=== PATIENT | male | born 1940 | race Caucasian/White ===

== ENCOUNTER 2017-11-03 21:02 | Inpatient (IN) | payer MEDICARE, MEDICAID ==
[2017-11-03] MEDS ORDERED: Sodium Chloride 0.9% 10 ML Syringe FLUSH PRN (21:25)
[2017-11-03] MEDS ORDERED: cefTRIAXone 2 GM in Sodium Chloride 0.9% 100 ML IV ONE (21:27)
[2017-11-03] MEDS ORDERED: Albuterol/Ipratropium 3.0-0.5 MG/3 ML Neb Soln NEB ONE (21:27)
--- NOTE | 2017-11-03 21:28 | EDM.PDOC ---
ED HPI GENERAL MEDICAL PROBLEM - General Chief Complaint: Respiratory Problem Stated Complaint: FEVER/CONGESTION Time Seen by Provider: 11/03/17 21:21 Source of Information: Reports: Patient, Family, Assisted Records History Limitations: Reports: No Limitations - History of Present Illness INITIAL COMMENTS - FREE TEXT/NARRATIVE: The patient presents from [facility] in [place] for fever, cough and shortness of breath. This all started a few days ago and it got worse. He had a temp of 102 at the custodial and he was given tylenol before he left to come to the ER. His temp was down to normal. His oxygen saturations were in the 80s at the custodial so they gave him oxygen to come with. He has no history of COPD or asthma but he says he did smoke for many years. He quit about 7 years ago when he went to the custodial after a stroke. He has no chest pain, abdominal pain, nausea or vomiting. Onset: Gradual Duration: Day(s): (2) Severity: Moderate Improves with: Reports: None Worsens with: Reports: None Associated Symptoms: Reports: Cough, Fever/Chills, Shortness of Breath. 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 - Related Data Allergies Allergy/AdvReac Type Severity Reaction Status Date / Time penicillin G Allergy Cannot Verified 11/03/17 21:16 Remember Home Meds: Home Meds Acetaminophen [Tylenol] 325 mg PO Q6HR PRN 11/03/17 [History] Acetaminophen/HYDROcodone [[place] 325-5 MG] 1 tab PO Q6HR PRN 11/03/17 [History] Clopidogrel [Plavix] 75 mg PO DAILY 11/03/17 [History] Dutasteride [Avodart] 0.5 mg PO DAILY 11/03/17 [History] Hydrochlorothiazide 12.5 mg PO DAILY 11/03/17 [History] LORazepam [Ativan] 0.5 mg PO BEDTIME 11/03/17 [History] LORazepam [Ativan] 0.5 mg PO Q8HR PRN 11/03/17 [History] Losartan [Cozaar] 50 mg PO DAILY 11/03/17 [History] Metoprolol Tartrate [Lopressor] 25 mg PO Q12HR 11/03/17 [History] Multivitamin [Multivitamins] 1 each PO DAILY 11/03/17 [History] Nystatin [Nystatin Oint] 1 appful TRDERM BID 11/03/17 [History] Sertraline [Zoloft] 150 mg PO DAILY 11/03/17 [History] Tamsulosin [Tamsulosin 24 Hr] 0.8 mg PO DAILY 11/03/17 [History] atorvaSTATin [Lipitor] 20 mg PO BEDTIME 11/03/17 [History] ED ROS GENERAL - Review of Systems Review Of Systems: See Below Constitutional: Reports: Fever, Chills HEENT: Reports: No Symptoms Respiratory: Reports: Shortness of Breath, Cough Cardiovascular: Reports: No Symptoms Endocrine: Reports: No Symptoms GI/Abdominal: Reports: No Symptoms : Reports: No Symptoms Musculoskeletal: Reports: No Symptoms ED EXAM, GENERAL - Physical Exam Exam: See Below Exam Limited By: No Limitations General Appearance: Alert, No Apparent Distress Ears: Normal External Exam Nose: Normal Inspection Head: Atraumatic, Normocephalic Neck: Normal Inspection Respiratory/Chest: No Respiratory Distress, Rhonchi, Wheezing Cardiovascular: Regular Rate, Rhythm, No Edema, No Murmur GI/Abdominal: Soft, Non-Tender, No Organomegaly, No Mass Back Exam: Normal Inspection Extremities: Normal Inspection Course - Vital Signs Last Recorded V/S: Last Vital Signs Temp 97.4 F 11/03/17 21:13 Pulse 81 11/03/17 21:13 Resp 20 11/03/17 21:13 BP 132/58 L 11/03/17 21:13 Pulse Ox 94 L 11/03/17 21:33 - Orders/Labs/Meds Orders: Active Orders 24 hr Category Date Time Status Cardiac Monitoring [RC] . DIRECTED Care 11/03/17 21:25 Active Oxygen Therapy [RC] PRN Care 11/03/17 21:25 Active Peripheral IV Care [RC] . DIRECTED Care 11/03/17 21:25 Active RT Aerosol Therapy [RC] ASDIRECTED Care 11/03/17 21:27 Active Chest 1V Frontal [CR] Stat Exams 11/03/17 21:25 Taken CULTURE BLOOD [BC] Stat Lab 11/03/17 21:45 Received CULTURE BLOOD [BC] Stat Lab 11/03/17 21:52 Received Sodium Chloride 0.9% [Normal Saline] 1,000 ml Med 11/03/17 21:30 Active IV ASDIRECTED Sodium Chloride 0.9% [Saline Flush] Med 11/03/17 21:25 Active 10 ml FLUSH ASDIRECTED PRN Blood Culture x2 Reflex Set [OM.PC] Stat Oth 11/03/17 21:26 Ordered Peripheral IV Insertion Adult [OM.PC] Stat Oth 11/03/17 21:25 Ordered Medication Orders Sodium Chloride (Normal Saline) 1,000 mls @ 125 mls/hr IV ASDIRECTED TARIQ Last Admin: 11/03/17 21:45 Dose: 125 mls/hr Sodium Chloride (Saline Flush) 10 ml FLUSH ASDIRECTED PRN PRN Reason: Keep Vein Open Last Admin: 11/03/17 21:45 Dose: 10 ml Labs: Laboratory Tests 11/03/17 11/03/17 11/03/17 Range/Units 21:45 21:45 21:45 WBC 15.71 H (4.23-9.07) K/mm3 RBC 5.02 (4.63-6.08) M/mm3 Hgb 15.4 (13.7-17.5) gm/L Hct 46.4 (40.1-51.0) % MCV 92.4 H (79.0-92.2) fl MCH 30.7 (25.7-32.2) pg MCHC 33.2 (32.2-35.5) g/dl RDW Std Deviation 43.9 (35.1-43.9) fL Plt Count 213 (163-337) K/mm3 MPV 9.8 (9.4-12.3) fl Neut % (Auto) 82.7 H (34.0-67.9) % Lymph % (Auto) 7.4 L (21.8-53.1) % [place] % (Auto) 9.1 (5.3-12.2) % Eos % (Auto) 0.4 L (0.8-7.0) Baso % (Auto) 0.2 (0.1-1.2) % Neut # (Auto) 12.99 H (1.78-5.38) K/mm3 Lymph # (Auto) 1.17 L (1.32-3.57) K/mm3 [place] # (Auto) 1.43 H (0.30-0.82) K/mm3 Eos # (Auto) 0.06 (0.04-0.54) K/mm3 Baso # (Auto) 0.03 (0.01-0.08) K/mm3 Manual Slide Review Normal smear Sodium 137 (136-145) mEq/L Potassium 3.8 (3.5-5.1) mEq/L Chloride 101 (98-107) mEq/L Carbon Dioxide 25 (21-32) mEq/L Anion Gap 14.8 (5-15) BUN 21 H (7-18) mg/dL Creatinine 1.1 (0.7-1.3) mg/dL Est Cr Clr Drug Dosing 54.25 mL/min Estimated GFR (MDRD) > 60 (>60) mL/min BUN/Creatinine Ratio 19.1 H (14-18) Glucose 135 H (83-115) mg/dL Lactic Acid 0.9 (0.4-2.0) mmol/L Calcium 9.0 (8.5-10.1) mg/dL Total Bilirubin 0.8 (0.2-1.0) mg/dL AST 20 (15-37) U/L ALT 28 (16-63) U/L Alkaline Phosphatase 73 (46-116) U/L Total Protein 7.4 (6.4-8.2) g/dl Albumin 3.5 (3.4-5.0) g/dl Globulin 3.9 gm/dL Albumin/Globulin Ratio 0.9 L (1-2) Meds: Medications Generic Name Dose Route Start Last Admin Trade Name Freq PRN Reason Stop Dose Admin Sodium Chloride 1,000 mls @ 125 mls/hr 11/03/17 21:30 11/03/17 21:45 Normal Saline IV 125 mls/hr ASDIRECTED TARIQ Administration Sodium Chloride 10 ml 11/03/17 21:25 11/03/17 21:45 Saline Flush FLUSH 10 ml ASDIRECTED PRN Administration Keep Vein Open Discontinued Medications Generic Name Dose Route Start Last Admin Trade Name Freq PRN Reason Stop Dose Admin Albuterol/Ipratropium 3 ml 11/03/17 21:27 11/03/17 21:38 Duoneb 3.0-0.5 Mg/3 Ml NEB 11/03/17 21:28 3 ml ONETIME ONE Administration Ceftriaxone Sodium 2 gm/ 100 mls @ 100 mls/hr 11/03/17 21:27 11/03/17 21:50 Sodium Chloride IV 11/03/17 22:26 100 mls/hr ONETIME ONE Administration - Re-Assessments/Exams Free Text/Narrative Re-Assessment/Exam: 11/03/17 23:01 I ordered oxygen, IV NS at 125mL/hr, CXR, labs, blood cultures, rocephin 2 grams IV and a duoneb. His CXR shows a left sided perihilar infiltrate. 11/03/17 23:02 His WBC was elevated at 15.71. His glucose was slightly elevated at 135. His creatinine was normal. His lactic acid was normal. His influenza was negative. He needs to be admitted. I called Dr Fernandez and she agreed to the admission. Departure - Departure Time of Disposition: 23:05 Disposition: Admitted As Inpatient 68 Condition: Fair Clinical Impression: Hypoxia Pneumonia Qualifiers: Pneumonia type: due to unspecified organism Laterality: left Lung location: lower lobe of lung Qualified Code(s): J18.1 - Lobar pneumonia, unspecified organism - Discharge Information Referrals: Nate Alan MD [Primary Care Provider] - Forms: ED Department Discharge - My Orders Last 24 Hours: My Active Orders 11/03/17 21:25 Cardiac Monitoring [RC] . DIRECTED Oxygen Therapy [RC] PRN Peripheral IV Care [RC] . DIRECTED Chest 1V Frontal [CR] Stat Sodium Chloride 0.9% [Saline Flush] 10 ml FLUSH ASDIRECTED PRN Peripheral IV Insertion Adult [OM.PC] Stat 11/03/17 21:26 Blood Culture x2 Reflex Set [OM.PC] Stat 11/03/17 21:27 RT Aerosol Therapy [RC] ASDIRECTED 11/03/17 21:30 Sodium Chloride 0.9% [Normal Saline] 1,000 ml IV ASDIRECTED 11/03/17 21:45 CULTURE BLOOD [BC] Stat 11/03/17 21:52 CULTURE BLOOD [BC] Stat - Assessment/Plan Last 24 Hours: My Active Orders 11/03/17 21:25 Cardiac Monitoring [RC] . DIRECTED Oxygen Therapy [RC] PRN Peripheral IV Care [RC] . DIRECTED Chest 1V Frontal [CR] Stat Sodium Chloride 0.9% [Saline Flush] 10 ml FLUSH ASDIRECTED PRN Peripheral IV Insertion Adult [OM.PC] Stat 11/03/17 21:26 Blood Culture x2 Reflex Set [OM.PC] Stat 11/03/17 21:27 RT Aerosol Therapy [RC] ASDIRECTED 11/03/17 21:30 Sodium Chloride 0.9% [Normal Saline] 1,000 ml IV ASDIRECTED 11/03/17 21:45 CULTURE BLOOD [BC] Stat 11/03/17 21:52 CULTURE BLOOD [BC] Stat
[2017-11-03] MEDS ORDERED: Sodium Chloride 0.9% 1,000 ML IV SCH (21:30)
[2017-11-03] MEDS ORDERED: Sodium Chloride 0.9% 500 ML IV ONE (23:20)
[2017-11-04] MEDS ORDERED: Albuterol/Ipratropium 3.0-0.5 MG/3 ML Neb Soln NEB ONE (00:09)
[2017-11-04] MEDS ORDERED: Acetaminophen Soln 650 MG/20.3 ML UD Cup PO PRN (01:21)
[2017-11-04] MEDS ORDERED: Enoxaparin 30 MG/0.3 ML Syringe SUBCUT ONE (01:30)
[2017-11-04] MEDS: Levofloxacin/Dextrose 5%-Water 750 MG in Premix Bag 1 BAG IV SCH (02:05)
[2017-11-04] MEDS: Sodium Chloride 0.9% 1,000 ML IV SCH ×3 (03:47→22:23)
--- NOTE | 2017-11-04 06:51 | CR ---
Chest: Portable view of the chest was obtained. Comparison: Previous chest x-ray of 01/30/[address] of 05/28/15. Deformity of the left chest due to old left-sided rib fractures is noted. Old healed left clavicle fracture is noted. Heart size is normal. Tortuous thoracic aorta is seen. Lungs show no acute parenchymal change. Deformity partially visualized within the proximal right humerus presumably due to old fracture. Impression: 1. Old bony trauma. Nothing acute is seen on portable chest x-ray. Diagnostic code #2
[2017-11-04] MEDS ORDERED: Acetaminophen 325 MG Tab PO PRN (08:13)
[2017-11-04] MEDS ORDERED: Magnesium Hydroxide 400 MG/5 ML Susp 30 ML Cup PO PRN (08:13)
[2017-11-04] MEDS ORDERED: Bisacodyl 5 MG Tab PO PRN (08:13)
[2017-11-04] MEDS ORDERED: Albuterol 0.083% 2.5 MG/3 ML Neb Soln NEB PRN (08:13)
[2017-11-04] MEDS ORDERED: Ondansetron 4 MG Tab.DIS PO PRN (08:13)
[2017-11-04] MEDS ORDERED: LORazepam 0.5 MG Tab PO PRN (08:22)
--- NOTE | 2017-11-04 08:30 | PCM.HP ---
H&P History of Present Illness - General Date of Service: 11/04/17 Admit Problem/Dx: Admission Diagnosis/Problem Admission Diagnosis/Problem Pneumonia Source of Information: Patient, Other (ED notes) History Limitations: Reports: No Limitations - History of Present Illness Initial Comments - Free Text/Narative: Crys is a 77yo male admitted through the ED last night for LLL PNA with hypoxia. He arrived via ambulance from [facility] in [place] where he resides for the past 7 years s/p CVA. He had been feeling weak with worsening cough and SOB x 2 days [facility]. He had a temp of 102 at [facility] earlier the day of admission. He has had low grade temp overnight of 99. He is on 3L supplemental oxygen this morning with saturations in the low 90's. Did not sleep the best, is coughing with minimal production this morning. No c/o CP, dizziness, abd or back pain this morning. PMH significant for CVA in 2000, COPD, pulmonary nodule, HTN, HLD, BPH, depression and anxiety, contracture of the left hand and chronic pain syndrome, hx of tobacco use quit 7 years ago after CVA. Patient is DNR code status. PCP is Dr. Alan. Duration of Symptoms: Reports: Day(s): (2) Location: Reports: Chest Quality: Reports: Other (cough and worsening SOB) Associated Symptoms: Reports: Fever/Chills, Loss of Appetite, Malaise, Shortness of Breath, Weakness. Denies: Chest Pain, Nausea/Vomiting, Syncope - Related Data Allergies/Adverse Reactions: Allergies Allergy/AdvReac Type Severity Reaction Status Date / Time penicillin G Allergy Cannot Verified 11/04/17 04:19 Remember Home Medications: Home Meds Acetaminophen [Tylenol] 325 mg PO Q6HR PRN 11/03/17 [History] Acetaminophen/HYDROcodone [[place] 325-5 MG] 1 tab PO Q6HR PRN 11/03/17 [History] Clopidogrel [Plavix] 75 mg PO DAILY 11/03/17 [History] Dutasteride [Avodart] 0.5 mg PO DAILY 11/03/17 [History] Hydrochlorothiazide 12.5 mg PO DAILY 11/03/17 [History] LORazepam [Ativan] 0.5 mg PO BEDTIME 11/03/17 [History] LORazepam [Ativan] 0.5 mg PO Q8HR PRN 11/03/17 [History] Losartan [Cozaar] 50 mg PO DAILY 11/03/17 [History] Metoprolol Tartrate [Lopressor] 25 mg PO Q12HR 11/03/17 [History] Multivitamin [Multivitamins] 1 each PO DAILY 11/03/17 [History] Sertraline [Zoloft] 150 mg PO DAILY 11/03/17 [History] Tamsulosin [Tamsulosin 24 Hr] 0.8 mg PO DAILY 11/03/17 [History] atorvaSTATin [Lipitor] 20 mg PO BEDTIME 11/03/17 [History] Docosanol [Abreva 10%] 1 applic TOP DAILY PRN 11/04/17 [History] Past Medical History HEENT History: Reports: Hard of Hearing Cardiovascular History: Reports: Hypertension Respiratory History: Reports: COPD, Other (See Below) Other Respiratory History: pulmonary nodule Musculoskeletal History: Reports: Other (See Below) Other Musculoskeletal History: contracture of left hand, chronic pain syndrome Neurological History: Reports: TIA, Other (See Below) Other Neuro History: cerebral infarction Psychiatric History: Reports: Anxiety, Depression Dermatologic History: Reports: Seborrheic Dermatitis - Past Surgical History Cardiovascular Surgical History: Reports: None Respiratory Surgical History: Reports: None Social & Family History - Family History Family Medical History: Noncontributory - Tobacco Use Smoking Status *Q: Former Smoker Used Tobacco, but Quit: Yes Month Tobacco Last Used: unknown Second Hand Smoke Exposure: No - Caffeine Use Caffeine Use: Reports: None - Recreational Drug Use Recreational Drug Use: No H&P Review of Systems - Review of Systems: Review Of Systems: See Below General: Reports: Fever (low grade/minimal since admit), Malaise, Weakness, Fatigue, Decreased Appetite HEENT: Reports: No Symptoms Pulmonary: Reports: Shortness of Breath, Cough Cardiovascular: Reports: Dyspnea on Exertion. Denies: Chest Pain, Palpitations Gastrointestinal: Reports: No Symptoms. Denies: Abdominal Pain, Nausea, Vomiting Genitourinary: Reports: No Symptoms Musculoskeletal: Reports: No Symptoms, Other (contracture of lt hand by hx- s/p CVA) Psychiatric: Reports: Depression (by hx), Anxiety (by hx) Neurological: Reports: Weakness Exam - Exam Exam: See Below - Vital Signs Vital Signs: Last Vital Signs Temp 99.1 F 11/04/17 03:51 Pulse 74 11/04/17 03:51 Resp 40 H 11/04/17 03:51 BP 109/57 L 11/04/17 03:51 Pulse Ox 90 L 11/04/17 03:51 Weight: 199 lb 14.4 oz - Exam Quality Assessment: Supplemental Oxygen, DVT Prophylaxis General: Alert, Cooperative HEENT: Conjunctiva Clear, EOMI, Hearing Intact ([place]), Pupils Equal, Pupils Reactive, PERRLA Neck: Supple Lungs: Normal Respiratory Effort, Decreased Breath Sounds, Rhonchi, Wheezing Cardiovascular: Regular Rate, Regular Rhythm GI/Abdominal Exam: Normal Bowel Sounds, Soft, Non-Tender (Male) Exam: Deferred Rectal (Males) Exam: Deferred Back Exam: Normal Inspection Extremities: No Pedal Edema, Normal Capillary Refill, Other (contracture of lt hand) Peripheral Pulses: 1+: Dorsalis Pedis (L), Dorsalis Pedis (R) Neuro Extensive - Mental Status: Alert, Oriented x3, Normal Mood/Affect, Normal Cognition, Memory Intact Psychiatric: Alert - Patient Data Lab Results Last 24 hrs: Laboratory Results - last 24 hr 11/04/17 11/04/17 11/04/17 Range/Units 00:20 06:32 06:32 WBC 12.03 H (4.23-9.07) K/mm3 RBC 4.67 (4.63-6.08) M/mm3 Hgb 14.2 (13.7-17.5) gm/L Hct 44.0 (40.1-51.0) % MCV 94.2 H (79.0-92.2) fl MCH 30.4 (25.7-32.2) pg MCHC 32.3 (32.2-35.5) g/dl RDW Std Deviation 44.2 H (35.1-43.9) fL Plt Count 209 (163-337) K/mm3 MPV 9.9 (9.4-12.3) fl Neut % (Auto) 68.1 H (34.0-67.9) % Lymph % (Auto) 15.4 L (21.8-53.1) % [place] % (Auto) 13.5 H (5.3-12.2) % Eos % (Auto) 2.4 (0.8-7.0) Baso % (Auto) 0.4 (0.1-1.2) % Neut # (Auto) 8.19 H (1.78-5.38) K/mm3 Lymph # (Auto) 1.85 (1.32-3.57) K/mm3 [place] # (Auto) 1.62 H (0.30-0.82) K/mm3 Eos # (Auto) 0.29 (0.04-0.54) K/mm3 Baso # (Auto) 0.05 (0.01-0.08) K/mm3 Manual Slide Review Normal smear Sodium 139 (136-145) mEq/L Potassium 3.9 (3.5-5.1) mEq/L Chloride 104 (98-107) mEq/L Carbon Dioxide 27 (21-32) mEq/L Anion Gap 11.9 (5-15) BUN 19 H (7-18) mg/dL Creatinine 1.0 (0.7-1.3) mg/dL Est Cr Clr Drug Dosing 59.67 mL/min Estimated GFR (MDRD) > 60 (>60) mL/min BUN/Creatinine Ratio 19.0 H (14-18) Glucose 100 (83-115) mg/dL Lactic Acid (0.4-2.0) mmol/L Calcium 8.1 L (8.5-10.1) mg/dL Magnesium 1.9 (1.8-2.4) mg/dl C-Reactive Protein 6.4 H* (<1.0) mg/dL MRSA (PCR) Negative 11/04/17 Range/Units 06:32 WBC (4.23-9.07) K/mm3 RBC (4.63-6.08) M/mm3 Hgb (13.7-17.5) gm/L Hct (40.1-51.0) % MCV (79.0-92.2) fl MCH (25.7-32.2) pg MCHC (32.2-35.5) g/dl RDW Std Deviation (35.1-43.9) fL Plt Count (163-337) K/mm3 MPV (9.4-12.3) fl Neut % (Auto) (34.0-67.9) % Lymph % (Auto) (21.8-53.1) % [place] % (Auto) (5.3-12.2) % Eos % (Auto) (0.8-7.0) Baso % (Auto) (0.1-1.2) % Neut # (Auto) (1.78-5.38) K/mm3 Lymph # (Auto) (1.32-3.57) K/mm3 [place] # (Auto) (0.30-0.82) K/mm3 Eos # (Auto) (0.04-0.54) K/mm3 Baso # (Auto) (0.01-0.08) K/mm3 Manual Slide Review Sodium (136-145) mEq/L Potassium (3.5-5.1) mEq/L Chloride (98-107) mEq/L Carbon Dioxide (21-32) mEq/L Anion Gap (5-15) BUN (7-18) mg/dL Creatinine (0.7-1.3) mg/dL Est Cr Clr Drug Dosing mL/min Estimated GFR (MDRD) (>60) mL/min BUN/Creatinine Ratio (14-18) Glucose (83-115) mg/dL Lactic Acid 0.7 (0.4-2.0) mmol/L Calcium (8.5-10.1) mg/dL Magnesium (1.8-2.4) mg/dl C-Reactive Protein (<1.0) mg/dL MRSA (PCR) Result Diagrams: 11/04/17 06:32 11/04/17 06:32 Rafal Results Last 24 hrs: Microbiology 11/04/17 02:15 Influenza Type A Antigen Screen - Final Nasal, Unspecified NEGATIVE INFLUENZA A VIRUS AG Influenza Type B Antigen Screen - Final NEGATIVE INFLUENZA B VIRUS AG *Q Meaningful Use (ADM) - VTE *Q VTE Criteria *Q: - Stroke *Q Stroke Criteria *Q: - AMI *Q AMI Criteria *Q: - Problem List (1) Pneumonia SNOMED Code(s): 968022268 ICD Code: J18.9 - PNEUMONIA, UNSPECIFIED ORGANISM Status: Acute Priority : High Current Visit: Yes Qualifiers: Pneumonia type: due to unspecified organism Laterality: left Lung location: lower lobe of lung Qualified Code(s): J18.1 - Lobar pneumonia, unspecified organism (2) Hypoxia SNOMED Code(s): 429118819 ICD Code: R09.02 - HYPOXEMIA Status: Acute Priority: High Current Visit : Yes (3) COPD (chronic obstructive pulmonary disease) SNOMED Code(s): 91627692 ICD Code: J44.9 - CHRONIC OBSTRUCTIVE PULMONARY DISEASE, UNSPECIFIED Status : Chronic Priority: High Current Visit: Yes Qualifiers: COPD type: COPD with acute exacerbation Qualified Code(s): J44.1 - Chronic obstructive pulmonary disease with (acute) exacerbation (4) History of CVA (cerebrovascular accident) SNOMED Code(s): 596591978 ICD Code: Z86.73 - PRSNL HX OF TIA (TIA), AND CEREB INFRC W/O RESID DEFICITS Status: Chronic Priority: Medium Current Visit: No Problem List Initiated/Reviewed/Updated: Yes Orders Last 24hrs: Active Orders 24 hr Category Date Time Status Patient Status [ADT] Routine ADT 11/04/17 01:15 Active Ambulate [RC] QSHIFT Care 11/04/17 08:13 Ordered Height and Weight [RC] DAILY Care 11/04/17 08:13 Ordered IS (RT) [RT Incentive Spirometry] [RC] Q2HWA Care 11/04/17 08:21 Ordered Intake and Output [RC] QSHIFT Care 11/04/17 08:14 Ordered Oxygen Therapy [RC] PRN Care 11/04/17 08:13 Ordered RT Aerosol Therapy [RC] ASDIRECTED Care 11/04/17 08:15 Ordered Up With Assistance [RC] ASDIRECTED Care 11/04/17 08:13 Ordered VTE/DVT Education [RC] PER UNIT ROUTINE Care 11/04/17 08:13 Ordered Vital Signs [RC] Q4H Care 11/04/17 08:13 Ordered OT Evaluation and Treatment [CONS] Routine Cons 11/04/17 08:13 Ordered PT Evaluation and Treatment [CONS] Routine Cons 11/04/17 08:13 Ordered 2 Gram Sodium Diet [DIET] Diet 11/04/17 Breakfast Ordered Chest 2V [CR] AM Exams 11/05/17 05:11 Ordered BASIC METABOLIC PANEL,BMP [CHEM] AM Lab 11/05/17 05:11 Ordered BASIC METABOLIC PANEL,BMP [CHEM] AM Lab 11/06/17 05:11 Ordered BASIC METABOLIC PANEL,BMP [CHEM] AM Lab 11/07/17 05:11 Ordered BASIC METABOLIC PANEL,BMP [CHEM] AM Lab 11/08/17 05:11 Ordered BASIC METABOLIC PANEL,BMP [CHEM] Routine Lab 11/04/17 06:32 Results C-REACTIVE PROTEIN [CHEM] AM Lab 11/05/17 05:11 Ordered C-REACTIVE PROTEIN [CHEM] AM Lab 11/06/17 05:11 Ordered C-REACTIVE PROTEIN [CHEM] AM Lab 11/07/17 05:11 Ordered C-REACTIVE PROTEIN [CHEM] AM Lab 11/08/17 05:11 Ordered CBC WITH AUTO DIFF [HEME] AM Lab 11/05/17 05:11 Ordered CBC WITH AUTO DIFF [HEME] AM Lab 11/06/17 05:11 Ordered CBC WITH AUTO DIFF [HEME] AM Lab 11/07/17 05:11 Ordered CBC WITH AUTO DIFF [HEME] AM Lab 11/08/17 05:11 Ordered CRP [C-REACTIVE PROTEIN] [CHEM] Routine Lab 11/04/17 06:32 Results MAGNESIUM [CHEM] AM Lab 11/05/17 05:11 Ordered MAGNESIUM [CHEM] AM Lab 11/06/17 05:11 Ordered MAGNESIUM [CHEM] AM Lab 11/07/17 05:11 Ordered MAGNESIUM [CHEM] AM Lab 11/08/17 05:11 Ordered MAGNESIUM [CHEM] Routine Lab 11/04/17 06:32 Results MYCOPLASMA PNEUMONIAE IGM AB [CHEM] Routine Lab 11/04/17 06:32 Results STREP PNEUMONIAE ANTIGEN [MREF] Routine Lab 11/04/17 03:30 Received UA W/MICROSCOPIC [URIN] Routine Lab 11/04/17 08:13 Ordered Acetaminophen [Tylenol] Med 11/04/17 01:21 Active 650 mg PO Q4H PRN Acetaminophen [Tylenol] Med 11/04/17 08:13 Ordered 650 mg PO Q4H PRN Albuterol [Proventil Neb Soln] Med 11/04/17 08:13 Ordered 2.5 mg NEB Q2H PRN Albuterol/Ipratropium [DuoNeb 3.0-0.5 MG/3 ML] Med 11/04/17 09:00 Ordered 3 ml NEB Q6HRRT Bisacodyl [Dulcolax] Med 11/04/17 08:13 Ordered 5 mg PO DAILY PRN Clopidogrel [Plavix] Med 11/04/17 09:00 Ordered 75 mg PO DAILY Dutasteride Med 11/04/17 09:00 Ordered 0.5 mg PO DAILY Enoxaparin [Lovenox] Med 11/04/17 09:00 Ordered 40 mg SUBCUT DAILY Famotidine [Pepcid] Med 11/04/17 09:00 Ordered 20 mg PO BID Hydrochlorothiazide Med 11/04/17 09:00 Ordered 12.5 mg PO DAILY LORazepam [Ativan] Med 11/04/17 21:00 Ordered 0.5 mg PO BEDTIME LORazepam [Ativan] Med 11/04/17 08:22 Ordered 0.5 mg PO Q8HR PRN Levofloxacin/Dextrose 5%-Water [Levaquin in D5W 750 MG/ Med 11/04/17 01:30 Active 150 ML] 750 mg Premix Bag 1 bag IV Q24H Losartan Med 11/04/17 09:00 Ordered 50 mg PO DAILY Magnesium Hydroxide [Milk of Magnesia] Med 11/04/17 08:13 Ordered 30 ml PO Q12H PRN Metoprolol Tartrate [Lopressor] Med 11/04/17 09:00 Ordered 25 mg PO Q12HR Multivitamin [Multivitamins] Med 11/04/17 09:00 Ordered 1 each PO DAILY Ondansetron [Zofran ODT] Med 11/04/17 08:13 Ordered 4 mg PO Q4H PRN Sertraline Med 11/04/17 09:00 Ordered 150 mg PO DAILY Sodium Chloride 0.9% [Normal Saline] 1,000 ml Med 11/04/17 01:30 Active IV ASDIRECTED Tamsulosin [Flomax] Med 11/04/17 09:00 Ordered 0.8 mg PO DAILY Temazepam [Restoril] Med 11/04/17 01:19 Active 7.5 mg PO BEDTIME PRN atorvaSTATin Med 11/04/17 21:00 Ordered 20 mg PO BEDTIME methylPREDNISolone Sod Succ [Solu-MEDROL] Med 11/04/17 08:30 Ordered 40 mg IVPUSH Q8H Isolation [COMM] Routine Oth 11/04/17 01:17 Ordered RT Acapella [RESPCARE] Routine Oth 11/04/17 08:21 Ordered Code Status [Resuscitation Status] Routine Resus Stat 11/04/17 01:27 Ordered Medication Orders Acetaminophen (Tylenol) 650 mg PO Q4H PRN PRN Reason: Pain/Fever Acetaminophen (Tylenol) 650 mg PO Q4H PRN PRN Reason: Pain (Mild 1-3)/fever Albuterol (Proventil Neb Soln) 2.5 mg NEB Q2H PRN PRN Reason: Shortness Of Breath/wheezing Albuterol/Ipratropium (Duoneb 3.0-0.5 Mg/3 Ml) 3 ml NEB Q6HRRT [facility] Bisacodyl (Dulcolax) 5 mg PO DAILY PRN PRN Reason: Constipation Enoxaparin Sodium (Lovenox) 40 mg SUBCUT DAILY [facility] Levofloxacin/Dextrose 750 mg/ (Premix) 150 mls @ 100 mls/hr IV Q24H [facility] Last Admin: 11/04/17 02:05 Dose: 100 mls/hr Sodium Chloride (Normal Saline) 1,000 mls @ 100 mls/hr IV ASDIRECTED [facility] Last Admin: 11/04/17 03:47 Dose: 100 mls/hr Magnesium Hydroxide (Milk Of Magnesia) 30 ml PO Q12H PRN PRN Reason: Constipation Methylprednisolone Sodium Succinate (Solu-Medrol) 40 mg IVPUSH Q8H [facility] Ondansetron HCl (Zofran Odt) 4 mg PO Q4H PRN PRN Reason: nausea, able to take PO Sodium Chloride (Saline Flush) 10 ml FLUSH ASDIRECTED PRN PRN Reason: Keep Vein Open Last Admin: 11/03/17 21:45 Dose: 10 ml Temazepam (Restoril) 7.5 mg PO BEDTIME PRN PRN Reason: Sleep Assessment/Plan Comment:: I/P: Acute LLL Pneumonia -Per ED review, CXR report per radiologist is without acute findings -Clinically with hypoxia, cough and fever this is PNA -Repeat CXR tomorrow -Supplemental oxygen to keep saturations >90% -Levaquin IV -Solumedrol IV -RT/Nebs/IS/FV -Mycoplasma, strep pneumo, resp viral panel ordered. Flu screen is negative. 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 Alan
[2017-11-04] MEDS ORDERED: Enoxaparin 40 MG/0.4 ML Syringe SUBCUT SCH (09:00)
[2017-11-04] MEDS: Sertraline 50 MG Tab PO SCH (10:50)
[2017-11-04] MEDS: Multivitamins,Therapeutic Tab PO SCH (10:50)
[2017-11-04] MEDS: Metoprolol Tartrate 25 MG Tab PO SCH ×2 (10:51→20:21)
[2017-11-04] MEDS: Hydrochlorothiazide 12.5 MG Cap PO SCH (10:51)
[2017-11-04] MEDS: Clopidogrel 75 MG Tab PO SCH (10:51)
[2017-11-04] MEDS: Losartan 25 MG Tab PO SCH (10:51)
[2017-11-04] MEDS: Tamsulosin 0.4 MG Cap.ER PO SCH (10:51)
[2017-11-04] MEDS: Finasteride 5 MG Tab PO SCH (10:51)
[2017-11-04] MEDS: methylPREDNISolone Sodium Succinate 40 MG/1 ML SDV IVPUSH SCH ×2 (10:52→17:31)
[2017-11-04] MEDS: Famotidine 20 MG Tab PO SCH ×2 (10:52→20:18)
[2017-11-04] MEDS: Albuterol/Ipratropium 3.0-0.5 MG/3 ML Neb Soln NEB SCH ×3 (11:05→21:44)
[2017-11-04] MEDS: LORazepam 0.5 MG Tab PO SCH (20:17)
[2017-11-04] MEDS: Simvastatin 20 MG Tab PO SCH (20:17)
[2017-11-05] MEDS: methylPREDNISolone Sodium Succinate 40 MG/1 ML SDV IVPUSH SCH ×2 (00:58→10:12)
[2017-11-05] MEDS: Levofloxacin/Dextrose 5%-Water 750 MG in Premix Bag 1 BAG IV SCH (00:59)
[2017-11-05] MEDS: Albuterol/Ipratropium 3.0-0.5 MG/3 ML Neb Soln NEB SCH ×4 (02:08→20:58)
[2017-11-05] MEDS: Multivitamins,Therapeutic Tab PO SCH (10:10)
[2017-11-05] MEDS: Metoprolol Tartrate 25 MG Tab PO SCH ×2 (10:10→23:06)
[2017-11-05] MEDS: Enoxaparin 40 MG/0.4 ML Syringe SUBCUT SCH (10:11)
[2017-11-05] MEDS: Sertraline 50 MG Tab PO SCH (10:11)
[2017-11-05] MEDS: Clopidogrel 75 MG Tab PO SCH (10:11)
[2017-11-05] MEDS: Famotidine 20 MG Tab PO SCH ×2 (10:11→22:52)
[2017-11-05] MEDS: Hydrochlorothiazide 12.5 MG Cap PO SCH (10:12)
[2017-11-05] MEDS: Tamsulosin 0.4 MG Cap.ER PO SCH (10:12)
[2017-11-05] MEDS: Finasteride 5 MG Tab PO SCH (10:12)
[2017-11-05] MEDS: Losartan 25 MG Tab PO SCH (10:12)
[2017-11-05] MEDS: Sodium Chloride 0.9% 1,000 ML IV SCH (10:20)
[2017-11-05] MEDS ORDERED: Magnesium Sulfate/Water 2 GM in Premix Bag 1 BAG IV ONE (11:16)
[2017-11-05] MEDS ORDERED: Furosemide 40 MG/4 ML VIAL IVPUSH ONE (11:36)
[2017-11-05] MEDS ORDERED: hydrALAZINE 20 MG/ML SDV IVPUSH PRN (11:38)
[2017-11-05] MEDS: methylPREDNISolone Sodium Succinate 125 MG/2 ML SDV IVPUSH SCH ×2 (12:32→22:52)
[2017-11-05] MEDS: Potassium Chloride 20 MEQ Tab.ER PO SCH ×2 (12:34→22:50)
--- NOTE | 2017-11-05 19:14 | PCM.PN ---
- General Info Date of Service: 11/05/17 Subjective Update: Feels SOB, has audible wheezing. Functional Status: Reports: Urinating - Review of Systems General: Reports: Weakness HEENT: Reports: No Symptoms Pulmonary: Reports: No Symptoms Cardiovascular: Reports: No Symptoms Gastrointestinal: Reports: No Symptoms Genitourinary: Reports: Retention Musculoskeletal: Reports: No Symptoms Skin: Reports: No Symptoms Neurological: Reports: No Symptoms Psychiatric: Reports: No Symptoms - Patient Data Vitals - Most Recent: Last Vital Signs Temp 36.8 C 11/05/17 07:31 Pulse 67 11/05/17 12:09 Resp 30 H 11/05/17 11:50 BP 115/73 11/05/17 11:50 Pulse Ox 95 11/05/17 15:21 Weight - Most Recent: 92.306 kg I&O - Last 24 Hours: Intake & Output 11/05/17 11/05/17 11/05/17 06:59 14:59 22:59 Intake Total 1450 930 Output Total 600 1100 Balance 850 -170 Lab Results Last 24 Hours: Laboratory Results - last 24 hr 11/05/17 11/05/17 Range/Units 06:34 06:34 WBC 9.56 H (4.23-9.07) K/mm3 RBC 4.33 L (4.63-6.08) M/mm3 Hgb 13.3 L (13.7-17.5) gm/L Hct 40.8 (40.1-51.0) % MCV 94.2 H (79.0-92.2) fl MCH 30.7 (25.7-32.2) pg MCHC 32.6 (32.2-35.5) g/dl RDW Std Deviation 43.8 (35.1-43.9) fL Plt Count 215 (163-337) K/mm3 MPV 10.1 (9.4-12.3) fl Neut % (Auto) 84.3 H (34.0-67.9) % Lymph % (Auto) 10.6 L (21.8-53.1) % [place] % (Auto) 4.8 L (5.3-12.2) % Eos % (Auto) 0 L (0.8-7.0) Baso % (Auto) 0.1 (0.1-1.2) % Neut # (Auto) 8.06 H (1.78-5.38) K/mm3 Lymph # (Auto) 1.01 L (1.32-3.57) K/mm3 [place] # (Auto) 0.46 (0.30-0.82) K/mm3 Eos # (Auto) 0.00 L (0.04-0.54) K/mm3 Baso # (Auto) 0.01 (0.01-0.08) K/mm3 Sodium 140 (136-145) mEq/L Potassium 3.5 (3.5-5.1) mEq/L Chloride 106 (98-107) mEq/L Carbon Dioxide 24 (21-32) mEq/L Anion Gap 13.5 (5-15) BUN 22 H (7-18) mg/dL Creatinine 1.1 (0.7-1.3) mg/dL Est Cr Clr Drug Dosing 54.25 mL/min Estimated GFR (MDRD) > 60 (>60) mL/min BUN/Creatinine Ratio 20.0 H (14-18) Glucose 129 H (83-115) mg/dL Calcium 8.5 (8.5-10.1) mg/dL Magnesium 1.9 (1.8-2.4) mg/dl C-Reactive Protein 3.7 H* (<1.0) mg/dL [facility] Results Last 24 Hours: Microbiology 11/04/17 11:04 Respiratory Virus Panel (PCR) ([facility]AL) - Final Nasopharyngeal Swab 11/04/17 03:30 Streptococcus pneumoniae Antigen (M - Final Urine Med Orders - Current: Current Medications Acetaminophen (Tylenol) 650 mg PO Q4H PRN PRN Reason: Pain/Fever Albuterol (Proventil Neb Soln) 2.5 mg NEB Q2H PRN PRN Reason: Shortness Of Breath/wheezing Last Admin: 11/05/17 12:06 Dose: 2.5 mg Albuterol/Ipratropium (Duoneb 3.0-0.5 Mg/3 Ml) 3 ml NEB Q6HRRT [facility] Last Admin: 11/05/17 15:19 Dose: 3 ml Bisacodyl (Dulcolax) 5 mg PO DAILY PRN PRN Reason: Constipation Clopidogrel Bisulfate (Plavix) 75 mg PO DAILY [facility] Last Admin: 11/05/17 10:11 Dose: 75 mg Enoxaparin Sodium (Lovenox) 40 mg SUBCUT DAILY [facility] Last Admin: 11/05/17 10:11 Dose: 40 mg Famotidine (Pepcid) 20 mg PO BID [facility] Last Admin: 11/05/17 10:11 Dose: 20 mg Finasteride (Proscar) 5 mg PO DAILY [facility] Last Admin: 11/05/17 10:12 Dose: 5 mg Hydralazine HCl (Apresoline) 20 mg IVPUSH Q6H PRN PRN Reason: Hypertension Hydrochlorothiazide (Hydrochlorothiazide) 12.5 mg PO DAILY [facility] Last Admin: 11/05/17 10:12 Dose: 12.5 mg Levofloxacin/Dextrose 750 mg/ (Premix) 150 mls @ 100 mls/hr IV Q24H [facility] Last Admin: 11/05/17 00:59 Dose: 100 mls/hr Lorazepam (Ativan) 0.5 mg PO BEDTIME [facility] Last Admin: 11/04/17 20:17 Dose: 0.5 mg Lorazepam (Ativan) 0.5 mg PO Q8H PRN PRN Reason: Anxiety Losartan Potassium (Cozaar) 50 mg PO DAILY [facility] Last Admin: 11/05/17 10:12 Dose: 50 mg Magnesium Hydroxide (Milk Of Magnesia) 30 ml PO Q12H PRN PRN Reason: Constipation Methylprednisolone Sodium Succinate (Solu-Medrol) 125 mg IVPUSH Q8H [facility] Last Admin: 11/05/17 12:32 Dose: 125 mg Metoprolol Tartrate (Lopressor) 25 mg PO Q12HR [facility] Last Admin: 11/05/17 10:10 Dose: 25 mg Multivitamins (Thera) 1 each PO DAILY [facility] Last Admin: 11/05/17 10:10 Dose: 1 each Ondansetron HCl (Zofran Odt) 4 mg PO Q4H PRN PRN Reason: nausea, able to take PO Potassium Chloride (Klor-Con M20) 40 meq PO BID [facility] Stop: 11/06/17 09:01 Last Admin: 11/05/17 12:34 Dose: 40 meq Sertraline HCl (Zoloft) 150 mg PO DAILY [facility] Last Admin: 11/05/17 10:11 Dose: 150 mg Simvastatin (Zocor) 20 mg PO BEDTIME [facility] Last Admin: 11/04/17 20:17 Dose: 20 mg Sodium Chloride (Saline Flush) 10 ml FLUSH ASDIRECTED PRN PRN Reason: Keep Vein Open Last Admin: 11/03/17 21:45 Dose: 10 ml Tamsulosin HCl (Flomax) 0.8 mg PO DAILY [facility] Last Admin: 11/05/17 10:12 Dose: 0.8 mg Temazepam (Restoril) 7.5 mg PO BEDTIME PRN PRN Reason: Sleep Discontinued Medications Acetaminophen (Tylenol) 650 mg PO Q4H PRN PRN Reason: Pain (Mild 1-3)/fever Albuterol/Ipratropium (Duoneb 3.0-0.5 Mg/3 Ml) 3 ml NEB ONETIME ONE Stop: 11/03/17 21:28 Last Admin: 11/03/17 21:38 Dose: 3 ml Albuterol/Ipratropium (Duoneb 3.0-0.5 Mg/3 Ml) 3 ml NEB ONETIME ONE Stop: 11/04/17 00:10 Last Admin: 11/04/17 01:10 Dose: Not Given Enoxaparin Sodium (Lovenox) 30 mg SUBCUT ONETIME ONE Stop: 11/04/17 01:31 Last Admin: 11/04/17 02:05 Dose: 30 mg Enoxaparin Sodium (Lovenox) 40 mg SUBCUT DAILY [facility] Furosemide (Lasix) 20 mg IVPUSH NOW ONE Stop: 11/05/17 11:37 Last Admin: 11/05/17 12:34 Dose: 20 mg Ceftriaxone Sodium 2 gm/ (Sodium Chloride) 100 mls @ 100 mls/hr IV ONETIME ONE Stop: 11/03/17 22:26 Last Admin: 11/03/17 21:50 Dose: 100 mls/hr Sodium Chloride (Normal Saline) 1,000 mls @ 125 mls/hr IV ASDIRECTED [facility] Last Admin: 11/03/17 21:45 Dose: 125 mls/hr Sodium Chloride (Normal Saline) 500 mls @ 1,000 mls/hr IV .BOLUS ONE Stop: 11/03/17 23:49 Last Admin: 11/04/17 03:35 Dose: 1,000 mls/hr Sodium Chloride (Normal Saline) 1,000 mls @ 100 mls/hr IV ASDIRECTED [facility] Last Admin: 11/05/17 10:20 Dose: 100 mls/hr Magnesium Sulfate 2 gm/ Premix 50 mls @ 25 mls/hr IV ONETIME ONE Stop: 11/05/17 13:15 Last Admin: 11/05/17 11:42 Dose: 25 mls/hr Methylprednisolone Sodium Succinate (Solu-Medrol) 40 mg IVPUSH Q8H [facility] Last Admin: 11/05/17 10:12 Dose: 40 mg - Exam Quality Assessment: Supplemental Oxygen, DVT Prophylaxis General: Alert, Oriented, Cooperative, No Acute Distress HEENT: Pupils Equal, Pupils Reactive, EOMI Neck: Trachea Midline, No JVD Lungs: Normal Respiratory Effort, Decreased Breath Sounds, Wheezing Cardiovascular: Regular Rate, Regular Rhythm GI/Abdominal Exam: Normal Bowel Sounds, Soft, Non-Tender, No Organomegaly, No Distention (Male) Exam: Deferred Back Exam: Normal Inspection Extremities: Normal Inspection, Non-Tender, Normal Capillary Refill Skin: Warm Neurological: No New Focal Deficit Psy/Mental Status: Alert, Normal Affect, Normal Mood - Problem List Review Problem List Initiated/Reviewed/Updated: Yes - My Orders Last 24 Hours: My Active Orders 11/05/17 11:38 hydrALAZINE [Apresoline] 20 mg IVPUSH Q6H PRN 11/05/17 11:45 Potassium Chloride [Klor-Con M20] 40 meq PO BID 11/05/17 12:00 methylPREDNISolone Sod Succ [Solu-MEDROL] 125 mg IVPUSH Q8H - Plan Plan:: I/P: Acute LLL Pneumonia -Per ED review, CXR report per radiologist is without acute findings -Clinically with hypoxia, cough and fever this is PNA -Repeat CXR tomorrow -Supplemental oxygen to keep saturations >90% -Levaquin IV -Solumedrol IV, increase 125 mg Q 8H -RT/Nebs/IS/FV -Mycoplasma, strep pneumo, resp viral panel ordered. Flu screen is negative. 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 Alan
[2017-11-05] MEDS: Simvastatin 20 MG Tab PO SCH (22:51)
[2017-11-05] MEDS: LORazepam 0.5 MG Tab PO SCH (22:52)
[2017-11-06] MEDS: Temazepam 7.5 MG Cap PO PRN (00:23)
[2017-11-06] MEDS: Levofloxacin/Dextrose 5%-Water 750 MG in Premix Bag 1 BAG IV SCH (00:30)
[2017-11-06] MEDS: Albuterol/Ipratropium 3.0-0.5 MG/3 ML Neb Soln NEB SCH ×6 (03:08→20:19)
[2017-11-06] MEDS: methylPREDNISolone Sodium Succinate 125 MG/2 ML SDV IVPUSH SCH ×3 (05:11→19:00)
[2017-11-06] MEDS: Sertraline 50 MG Tab PO SCH (09:55)
[2017-11-06] MEDS: Enoxaparin 40 MG/0.4 ML Syringe SUBCUT SCH (09:55)
[2017-11-06] MEDS: Clopidogrel 75 MG Tab PO SCH (09:56)
[2017-11-06] MEDS: Famotidine 20 MG Tab PO SCH ×2 (09:56→20:21)
[2017-11-06] MEDS: Finasteride 5 MG Tab PO SCH (09:56)
[2017-11-06] MEDS: Potassium Chloride 20 MEQ Tab.ER PO SCH (09:56)
[2017-11-06] MEDS: Multivitamins,Therapeutic Tab PO SCH (09:56)
[2017-11-06] MEDS: Tamsulosin 0.4 MG Cap.ER PO SCH (09:56)
[2017-11-06] MEDS: Metoprolol Tartrate 25 MG Tab PO SCH ×2 (09:56→20:21)
--- NOTE | 2017-11-06 16:23 | PCM.PN ---
- General Info Date of Service: 11/06/17 Subjective Update: Patient ambulated today, he was told that he had to walk one lap before he would be discharged. DC anticipated 24-48 hours, he is RSV positive. Functional Status: Reports: Tolerating Diet, Ambulating, Urinating - Review of Systems General: Reports: No Symptoms HEENT: Reports: No Symptoms Pulmonary: Reports: Shortness of Breath Cardiovascular: Reports: No Symptoms Gastrointestinal: Reports: No Symptoms Genitourinary: Reports: No Symptoms Musculoskeletal: Reports: No Symptoms Skin: Reports: No Symptoms Neurological: Reports: No Symptoms Psychiatric: Reports: No Symptoms - Patient Data Vitals - Most Recent: Last Vital Signs Temp 36.6 C 11/06/17 07:35 Pulse 68 11/06/17 11:35 Resp 32 H 11/06/17 11:35 BP 116/78 11/06/17 13:11 Pulse Ox 94 L 11/06/17 15:18 Weight - Most Recent: 92.034 kg I&O - Last 24 Hours: Intake & Output 11/06/17 11/06/17 11/06/17 06:59 14:59 22:59 Intake Total 240 450 Output Total 150 Balance 240 300 Lab Results Last 24 Hours: Laboratory Results - last 24 hr 11/06/17 11/06/17 Range/Units 06:42 06:42 WBC 15.54 H (4.23-9.07) K/mm3 RBC 4.43 L (4.63-6.08) M/mm3 Hgb 13.4 L (13.7-17.5) gm/L Hct 41.2 (40.1-51.0) % MCV 93.0 H (79.0-92.2) fl MCH 30.2 (25.7-32.2) pg MCHC 32.5 (32.2-35.5) g/dl RDW Std Deviation 43.7 (35.1-43.9) fL Plt Count 232 (163-337) K/mm3 MPV 10.2 (9.4-12.3) fl Neut % (Auto) 88.1 H (34.0-67.9) % Lymph % (Auto) 8.8 L (21.8-53.1) % [place] % (Auto) 2.8 L (5.3-12.2) % Eos % (Auto) 0 L (0.8-7.0) Baso % (Auto) 0.0 L (0.1-1.2) % Neut # (Auto) 13.70 H (1.78-5.38) K/mm3 Lymph # (Auto) 1.36 (1.32-3.57) K/mm3 [place] # (Auto) 0.44 (0.30-0.82) K/mm3 Eos # (Auto) 0.00 L (0.04-0.54) K/mm3 Baso # (Auto) 0.00 L (0.01-0.08) K/mm3 Manual Slide Review Abnormal smear Sodium 139 (136-145) mEq/L Potassium 3.5 (3.5-5.1) mEq/L Chloride 106 (98-107) mEq/L Carbon Dioxide 24 (21-32) mEq/L Anion Gap 12.5 (5-15) BUN 32 H (7-18) mg/dL Creatinine 1.2 (0.7-1.3) mg/dL Est Cr Clr Drug Dosing 49.73 mL/min Estimated GFR (MDRD) 59 (>60) mL/min BUN/Creatinine Ratio 26.7 H (14-18) Glucose 157 H (83-115) mg/dL Calcium 8.6 (8.5-10.1) mg/dL Magnesium 2.1 (1.8-2.4) mg/dl C-Reactive Protein 1.0 (<1.0) mg/dL Med Orders - Current: Current Medications Acetaminophen (Tylenol) 650 mg PO Q4H PRN PRN Reason: Pain/Fever Albuterol (Proventil Neb Soln) 2.5 mg NEB Q2H PRN PRN Reason: Shortness Of Breath/wheezing Last Admin: 11/05/17 12:06 Dose: 2.5 mg Albuterol/Ipratropium (Duoneb 3.0-0.5 Mg/3 Ml) 3 ml NEB Q6HRRT [facility] Last Admin: 11/06/17 15:16 Dose: 3 ml Bisacodyl (Dulcolax) 5 mg PO DAILY PRN PRN Reason: Constipation Clopidogrel Bisulfate (Plavix) 75 mg PO DAILY [facility] Last Admin: 11/06/17 09:56 Dose: 75 mg Enoxaparin Sodium (Lovenox) 40 mg SUBCUT DAILY [facility] Last Admin: 11/06/17 09:55 Dose: 40 mg Famotidine (Pepcid) 20 mg PO BID [facility] Last Admin: 11/06/17 09:56 Dose: 20 mg Finasteride (Proscar) 5 mg PO DAILY [facility] Last Admin: 11/06/17 09:56 Dose: 5 mg Hydralazine HCl (Apresoline) 20 mg IVPUSH Q6H PRN PRN Reason: Hypertension Hydrochlorothiazide (Hydrochlorothiazide) 12.5 mg PO DAILY [facility] Last Admin: 11/05/17 10:12 Dose: 12.5 mg Levofloxacin (Levaquin) 750 mg PO BEDTIME [facility] Lorazepam (Ativan) 0.5 mg PO BEDTIME [facility] Last Admin: 11/05/17 22:52 Dose: 0.5 mg Lorazepam (Ativan) 0.5 mg PO Q8H PRN PRN Reason: Anxiety Losartan Potassium (Cozaar) 50 mg PO DAILY [facility] Last Admin: 11/05/17 10:12 Dose: 50 mg Magnesium Hydroxide (Milk Of Magnesia) 30 ml PO Q12H PRN PRN Reason: Constipation Methylprednisolone Sodium Succinate (Solu-Medrol) 125 mg IVPUSH Q8H [facility] Last Admin: 11/06/17 13:13 Dose: 125 mg Metoprolol Tartrate (Lopressor) 25 mg PO Q12HR [facility] Last Admin: 11/06/17 09:56 Dose: 25 mg Multivitamins (Thera) 1 each PO DAILY [facility] Last Admin: 11/06/17 09:56 Dose: 1 each Ondansetron HCl (Zofran Odt) 4 mg PO Q4H PRN PRN Reason: nausea, able to take PO Sertraline HCl (Zoloft) 150 mg PO DAILY [facility] Last Admin: 11/06/17 09:55 Dose: 150 mg Simvastatin (Zocor) 20 mg PO BEDTIME [facility] Last Admin: 11/05/17 22:51 Dose: 20 mg Sodium Chloride (Saline Flush) 10 ml FLUSH ASDIRECTED PRN PRN Reason: Keep Vein Open Last Admin: 11/03/17 21:45 Dose: 10 ml Tamsulosin HCl (Flomax) 0.8 mg PO DAILY [facility] Last Admin: 11/06/17 09:56 Dose: 0.8 mg Temazepam (Restoril) 7.5 mg PO BEDTIME PRN PRN Reason: Sleep Last Admin: 11/06/17 00:23 Dose: 7.5 mg Discontinued Medications Acetaminophen (Tylenol) 650 mg PO Q4H PRN PRN Reason: Pain (Mild 1-3)/fever Albuterol/Ipratropium (Duoneb 3.0-0.5 Mg/3 Ml) 3 ml NEB ONETIME ONE Stop: 11/03/17 21:28 Last Admin: 11/03/17 21:38 Dose: 3 ml Albuterol/Ipratropium (Duoneb 3.0-0.5 Mg/3 Ml) 3 ml NEB ONETIME ONE Stop: 11/04/17 00:10 Last Admin: 11/04/17 01:10 Dose: Not Given Enoxaparin Sodium (Lovenox) 30 mg SUBCUT ONETIME ONE Stop: 11/04/17 01:31 Last Admin: 11/04/17 02:05 Dose: 30 mg Enoxaparin Sodium (Lovenox) 40 mg SUBCUT DAILY [facility] Furosemide (Lasix) 20 mg IVPUSH NOW ONE Stop: 11/05/17 11:37 Last Admin: 11/05/17 12:34 Dose: 20 mg Ceftriaxone Sodium 2 gm/ (Sodium Chloride) 100 mls @ 100 mls/hr IV ONETIME ONE Stop: 11/03/17 22:26 Last Admin: 11/03/17 21:50 Dose: 100 mls/hr Sodium Chloride (Normal Saline) 1,000 mls @ 125 mls/hr IV ASDIRECTED [facility] Last Admin: 11/03/17 21:45 Dose: 125 mls/hr Sodium Chloride (Normal Saline) 500 mls @ 1,000 mls/hr IV .BOLUS ONE Stop: 11/03/17 23:49 Last Admin: 11/04/17 03:35 Dose: 1,000 mls/hr Levofloxacin/Dextrose 750 mg/ (Premix) 150 mls @ 100 mls/hr IV Q24H [facility] Last Admin: 11/06/17 00:30 Dose: 100 mls/hr Sodium Chloride (Normal Saline) 1,000 mls @ 100 mls/hr IV ASDIRECTED [facility] Last Admin: 11/05/17 10:20 Dose: 100 mls/hr Magnesium Sulfate 2 gm/ Premix 50 mls @ 25 mls/hr IV ONETIME ONE Stop: 11/05/17 13:15 Last Admin: 11/05/17 11:42 Dose: 25 mls/hr Methylprednisolone Sodium Succinate (Solu-Medrol) 40 mg IVPUSH Q8H [facility] Last Admin: 11/05/17 10:12 Dose: 40 mg Potassium Chloride (Klor-Con M20) 40 meq PO BID [facility] Stop: 11/06/17 09:01 Last Admin: 11/06/17 09:56 Dose: 40 meq - Exam Quality Assessment: Supplemental Oxygen, DVT Prophylaxis General: Alert, Oriented, Cooperative, No Acute Distress HEENT: Pupils Equal, Pupils Reactive, EOMI Neck: Trachea Midline, No JVD Lungs: Normal Respiratory Effort, Decreased Breath Sounds Cardiovascular: Regular Rate GI/Abdominal Exam: Normal Bowel Sounds, Soft, Non-Tender, No Organomegaly, No Distention (Male) Exam: Deferred Back Exam: Normal Inspection Extremities: Normal Inspection, Non-Tender, Normal Capillary Refill Skin: Warm Neurological: No New Focal Deficit Psy/Mental Status: Alert, Normal Affect, Normal Mood - Problem List Review Problem List Initiated/Reviewed/Updated: Yes - My Orders Last 24 Hours: My Active Orders 11/06/17 21:00 Levofloxacin [Levaquin] 750 mg PO BEDTIME - Plan Plan:: I/P: Acute LLL Pneumonia -Per ED review, CXR report per radiologist is without acute findings -Clinically with hypoxia, cough and fever this is PNA -Repeat CXR tomorrow -Supplemental oxygen to keep saturations >90% -Levaquin IV -Solumedrol IV, increase 125 mg Q 8H -RT/Nebs/IS/FV -Mycoplasma, strep pneumo,Flu screen is negative. 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 Alan
[2017-11-06] MEDS ORDERED: methylPREDNISolone Sodium Succinate 125 MG/2 ML SDV IVPUSH SCH (16:30)
[2017-11-06] MEDS ORDERED: Aluminum Hydroxide/Magnesium Hydroxide/Simethicone Susp 30 ML Cup PO PRN (17:05)
[2017-11-06] MEDS: LORazepam 0.5 MG Tab PO SCH (20:20)
[2017-11-06] MEDS: Simvastatin 20 MG Tab PO SCH (20:21)
[2017-11-06] MEDS ORDERED: Levofloxacin 750 MG Tab PO SCH (21:00)
[2017-11-07] MEDS: Temazepam 7.5 MG Cap PO PRN ×2 (00:45→21:06)
[2017-11-07] MEDS: methylPREDNISolone Sodium Succinate 125 MG/2 ML SDV IVPUSH SCH ×4 (00:45→18:18)
[2017-11-07] MEDS: Albuterol/Ipratropium 3.0-0.5 MG/3 ML Neb Soln NEB SCH ×4 (06:24→20:16)
--- NOTE | 2017-11-07 07:59 | CR ---
Chest: Two views of the chest were obtained. Comparison: Prior chest x-ray of 11/03/17. Deformity from old left-sided rib fractures are noted. Diffuse degenerative spurring noted within the spine. Heart size is at the upper limits of normal but accentuated from AP technique. Minimal areas of atelectasis are seen within the left chest. No acute parenchymal densities are seen. Impression: 1. Incidental findings. Nothing acute is seen. Diagnostic code #2 Agree with preliminary report issued by [facility] ([facility] preliminary report dictated on 11/05/17, 10:38 AM Central Time)
--- NOTE | 2017-11-07 08:39 | PCM.PN ---
- General Info Date of Service: 11/07/17 Admission Dx/Problem (Free Text): Admission Diagnosis/Problem Admission Diagnosis/Problem Pneumonia Doing well, coughing minimal. Ambulated loop in halls yesterday per Dr. Fernandez report. Plan likely DC back to [place] tomorrow if continues to do well. Functional Status: Reports: Pain Controlled, Tolerating Diet, Ambulating, Urinating. Denies: New Symptoms - Review of Systems General: Denies: Fever HEENT: Reports: No Symptoms Pulmonary: Reports: Cough (minimal- improved). Denies: Sputum, Hemoptysis Cardiovascular: Reports: No Symptoms Gastrointestinal: Reports: No Symptoms Neurological: Reports: No Symptoms, Pre-Existing Deficit Psychiatric: Reports: No Symptoms - Patient Data Vitals - Most Recent: Last Vital Signs Temp 98.1 F 11/07/17 03:45 Pulse 62 11/07/17 03:45 Resp 28 H 11/07/17 03:45 BP 131/72 11/07/17 03:45 Pulse Ox 91 L 11/07/17 06:24 Weight - Most Recent: 203 lb 6.4 oz I&O - Last 24 Hours: Intake & Output 11/06/17 11/07/17 11/07/17 22:59 06:59 14:59 Intake Total 450 840 Output Total 150 100 Balance 300 740 Lab Results Last 24 Hours: Laboratory Results - last 24 hr 11/07/17 11/07/17 Range/Units 07:07 07:07 WBC 16.41 H (4.23-9.07) K/mm3 RBC 4.67 (4.63-6.08) M/mm3 Hgb 14.3 (13.7-17.5) gm/L Hct 43.0 (40.1-51.0) % MCV 92.1 (79.0-92.2) fl MCH 30.6 (25.7-32.2) pg MCHC 33.3 (32.2-35.5) g/dl RDW Std Deviation 43.7 (35.1-43.9) fL Plt Count 243 (163-337) K/mm3 MPV 10.2 (9.4-12.3) fl Neut % (Auto) 85.9 H (34.0-67.9) % Lymph % (Auto) 10.2 L (21.8-53.1) % [place] % (Auto) 3.5 L (5.3-12.2) % Eos % (Auto) 0.1 L (0.8-7.0) Baso % (Auto) 0.1 (0.1-1.2) % Neut # (Auto) 14.11 H (1.78-5.38) K/mm3 Lymph # (Auto) 1.67 (1.32-3.57) K/mm3 [place] # (Auto) 0.57 (0.30-0.82) K/mm3 Eos # (Auto) 0.01 L (0.04-0.54) K/mm3 Baso # (Auto) 0.01 (0.01-0.08) K/mm3 Manual Slide Review Abnormal smear Sodium 141 (136-145) mEq/L Potassium 3.9 (3.5-5.1) mEq/L Chloride 106 (98-107) mEq/L Carbon Dioxide 23 (21-32) mEq/L Anion Gap 15.9 H (5-15) BUN 32 H (7-18) mg/dL Creatinine 1.0 (0.7-1.3) mg/dL Est Cr Clr Drug Dosing 59.67 mL/min Estimated GFR (MDRD) > 60 (>60) mL/min BUN/Creatinine Ratio 32.0 H (14-18) Glucose 149 H (83-115) mg/dL Calcium 8.6 (8.5-10.1) mg/dL Magnesium 2.2 (1.8-2.4) mg/dl C-Reactive Protein < 0.2 (<1.0) mg/dL Med Orders - Current: Current Medications Acetaminophen (Tylenol) 650 mg PO Q4H PRN PRN Reason: Pain/Fever Al Hydroxide/Mg Hydroxide (Mag-Al Plus) 30 ml PO Q4H PRN PRN Reason: Heartburn Last Admin: 11/06/17 17:34 Dose: 30 ml Albuterol (Proventil Neb Soln) 2.5 mg NEB Q2H PRN PRN Reason: Shortness Of Breath/wheezing Last Admin: 11/05/17 12:06 Dose: 2.5 mg Albuterol/Ipratropium (Duoneb 3.0-0.5 Mg/3 Ml) 3 ml NEB QIDRT [facility] Last Admin: 11/07/17 06:24 Dose: 3 ml Bisacodyl (Dulcolax) 5 mg PO DAILY PRN PRN Reason: Constipation Clopidogrel Bisulfate (Plavix) 75 mg PO DAILY [facility] Last Admin: 11/06/17 09:56 Dose: 75 mg Enoxaparin Sodium (Lovenox) 40 mg SUBCUT DAILY [facility] Last Admin: 11/06/17 09:55 Dose: 40 mg Famotidine (Pepcid) 20 mg PO BID [facility] Last Admin: 11/06/17 20:21 Dose: 20 mg Finasteride (Proscar) 5 mg PO DAILY [facility] Last Admin: 11/06/17 09:56 Dose: 5 mg Hydralazine HCl (Apresoline) 20 mg IVPUSH Q6H PRN PRN Reason: Hypertension Hydrochlorothiazide (Hydrochlorothiazide) 12.5 mg PO DAILY [facility] Last Admin: 11/05/17 10:12 Dose: 12.5 mg Levofloxacin (Levaquin) 750 mg PO BEDTIME [facility] Last Admin: 11/06/17 20:20 Dose: 750 mg Lorazepam (Ativan) 0.5 mg PO BEDTIME [facility] Last Admin: 11/06/17 20:20 Dose: 0.5 mg Lorazepam (Ativan) 0.5 mg PO Q8H PRN PRN Reason: Anxiety Losartan Potassium (Cozaar) 50 mg PO DAILY [facility] Last Admin: 11/05/17 10:12 Dose: 50 mg Magnesium Hydroxide (Milk Of Magnesia) 30 ml PO Q12H PRN PRN Reason: Constipation Methylprednisolone Sodium Succinate (Solu-Medrol) 125 mg IVPUSH Q6H [facility] Last Admin: 11/07/17 06:09 Dose: 125 mg Metoprolol Tartrate (Lopressor) 25 mg PO Q12HR [facility] Last Admin: 11/06/17 20:21 Dose: 25 mg Multivitamins (Thera) 1 each PO DAILY [facility] Last Admin: 11/06/17 09:56 Dose: 1 each Ondansetron HCl (Zofran Odt) 4 mg PO Q4H PRN PRN Reason: nausea, able to take PO Sertraline HCl (Zoloft) 150 mg PO DAILY [facility] Last Admin: 11/06/17 09:55 Dose: 150 mg Simvastatin (Zocor) 20 mg PO BEDTIME [facility] Last Admin: 11/06/17 20:21 Dose: 20 mg Sodium Chloride (Saline Flush) 10 ml FLUSH ASDIRECTED PRN PRN Reason: Keep Vein Open Last Admin: 11/03/17 21:45 Dose: 10 ml Tamsulosin HCl (Flomax) 0.8 mg PO DAILY [facility] Last Admin: 11/06/17 09:56 Dose: 0.8 mg Temazepam (Restoril) 7.5 mg PO BEDTIME PRN PRN Reason: Sleep Last Admin: 11/07/17 00:45 Dose: 7.5 mg Discontinued Medications Acetaminophen (Tylenol) 650 mg PO Q4H PRN PRN Reason: Pain (Mild 1-3)/fever Albuterol/Ipratropium (Duoneb 3.0-0.5 Mg/3 Ml) 3 ml NEB ONETIME ONE Stop: 11/03/17 21:28 Last Admin: 11/03/17 21:38 Dose: 3 ml Albuterol/Ipratropium (Duoneb 3.0-0.5 Mg/3 Ml) 3 ml NEB ONETIME ONE Stop: 11/04/17 00:10 Last Admin: 11/04/17 01:10 Dose: Not Given Albuterol/Ipratropium (Duoneb 3.0-0.5 Mg/3 Ml) 3 ml NEB Q6HRRT [facility] Last Admin: 11/06/17 15:16 Dose: 3 ml Albuterol/Ipratropium (Duoneb 3.0-0.5 Mg/3 Ml) 3 ml NEB QID [facility] Last Admin: 11/06/17 20:19 Dose: 3 ml Enoxaparin Sodium (Lovenox) 30 mg SUBCUT ONETIME ONE Stop: 11/04/17 01:31 Last Admin: 11/04/17 02:05 Dose: 30 mg Enoxaparin Sodium (Lovenox) 40 mg SUBCUT DAILY [facility] Furosemide (Lasix) 20 mg IVPUSH NOW ONE Stop: 11/05/17 11:37 Last Admin: 11/05/17 12:34 Dose: 20 mg Ceftriaxone Sodium 2 gm/ (Sodium Chloride) 100 mls @ 100 mls/hr IV ONETIME ONE Stop: 11/03/17 22:26 Last Admin: 11/03/17 21:50 Dose: 100 mls/hr Sodium Chloride (Normal Saline) 1,000 mls @ 125 mls/hr IV ASDIRECTED [facility] Last Admin: 11/03/17 21:45 Dose: 125 mls/hr Sodium Chloride (Normal Saline) 500 mls @ 1,000 mls/hr IV .BOLUS ONE Stop: 11/03/17 23:49 Last Admin: 11/04/17 03:35 Dose: 1,000 mls/hr Levofloxacin/Dextrose 750 mg/ (Premix) 150 mls @ 100 mls/hr IV Q24H [facility] Last Admin: 11/06/17 00:30 Dose: 100 mls/hr Sodium Chloride (Normal Saline) 1,000 mls @ 100 mls/hr IV ASDIRECTED [facility] Last Admin: 11/05/17 10:20 Dose: 100 mls/hr Magnesium Sulfate 2 gm/ Premix 50 mls @ 25 mls/hr IV ONETIME ONE Stop: 11/05/17 13:15 Last Admin: 11/05/17 11:42 Dose: 25 mls/hr Methylprednisolone Sodium Succinate (Solu-Medrol) 40 mg IVPUSH Q8H [facility] Last Admin: 11/05/17 10:12 Dose: 40 mg Methylprednisolone Sodium Succinate (Solu-Medrol) 125 mg IVPUSH Q8H [facility] Last Admin: 11/06/17 13:13 Dose: 125 mg Methylprednisolone Sodium Succinate (Solu-Medrol) 125 mg IVPUSH Q6H [facility] Last Admin: 11/06/17 19:33 Dose: Not Given Potassium Chloride (Klor-Con M20) 40 meq PO BID [facility] Stop: 11/06/17 09:01 Last Admin: 11/06/17 09:56 Dose: 40 meq - Exam Quality Assessment: DVT Prophylaxis General: Alert, Oriented, Cooperative, No Acute Distress HEENT: Pupils Equal, EOMI, Mucous Membr. Moist/[place] Neck: Supple Lungs: Normal Respiratory Effort, Decreased Breath Sounds Cardiovascular: Regular Rate, Regular Rhythm GI/Abdominal Exam: Normal Bowel Sounds, Soft, Non-Tender (Male) Exam: Deferred Extremities: Normal Capillary Refill, Other (lt hand contracture) Peripheral Pulses: 2+: Dorsalis Pedis (L), Dorsalis Pedis (R) Neurological: No New Focal Deficit (baseline speech impediment) Psy/Mental Status: Alert, Normal Affect, Normal Mood - Problem List & Annotations (1) Pneumonia SNOMED Code(s): 081641127 Code(s): J18.9 - PNEUMONIA, UNSPECIFIED ORGANISM Status: Acute Priority: High Current Visit: Yes Qualifiers: Pneumonia type: due to unspecified organism Laterality: left Lung location: lower lobe of lung Qualified Code(s): J18.1 - Lobar pneumonia, unspecified organism (2) Hypoxia SNOMED Code(s): 159037753 Code(s): R09.02 - HYPOXEMIA Status: Acute Priority: High Current Visit : Yes (3) COPD (chronic obstructive pulmonary disease) SNOMED Code(s): 03846761 Code(s): J44.9 - CHRONIC OBSTRUCTIVE PULMONARY DISEASE, UNSPECIFIED Status : Chronic Priority: High Current Visit: Yes Qualifiers: COPD type: COPD with acute exacerbation Qualified Code(s): J44.1 - Chronic obstructive pulmonary disease with (acute) exacerbation (4) History of CVA (cerebrovascular accident) SNOMED Code(s): 985083424 Code(s): Z86.73 - PRSNL HX OF TIA (TIA), AND CEREB INFRC W/O RESID DEFICITS Status: Chronic Priority: Medium Current Visit: No - Problem List Review Problem List Initiated/Reviewed/Updated: Yes - My Orders Last 24 Hours: My Active Orders 11/08/17 05:11 BASIC METABOLIC PANEL,BMP [CHEM] AM C-REACTIVE PROTEIN [CHEM] AM CBC WITH AUTO DIFF [HEME] AM MAGNESIUM [CHEM] AM - Plan Plan:: I/P: Acute LLL Pneumonia -Per ED review, CXR report per radiologist is without acute findings -Clinically with hypoxia, cough and fever this is PNA---improved -Repeat CXR--stable, no acute findings -Supplemental oxygen to keep saturations >90% -Levaquin IV -Solumedrol IV, increase 125 mg Q 8H---taper and to PO at DC -RT/Nebs/IS/FV -Mycoplasma, strep pneumo,Flu screen is negative. 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 Alan
[2017-11-07] MEDS: Sertraline 50 MG Tab PO SCH (09:25)
[2017-11-07] MEDS: Tamsulosin 0.4 MG Cap.ER PO SCH (09:25)
[2017-11-07] MEDS: Enoxaparin 40 MG/0.4 ML Syringe SUBCUT SCH (09:25)
[2017-11-07] MEDS: Finasteride 5 MG Tab PO SCH (09:25)
[2017-11-07] MEDS: Metoprolol Tartrate 25 MG Tab PO SCH ×2 (09:25→21:06)
[2017-11-07] MEDS: Multivitamins,Therapeutic Tab PO SCH (09:25)
[2017-11-07] MEDS: Clopidogrel 75 MG Tab PO SCH (09:28)
[2017-11-07] MEDS: Famotidine 20 MG Tab PO SCH ×2 (09:28→21:06)
[2017-11-07] MEDS: LORazepam 0.5 MG Tab PO SCH (21:06)
[2017-11-07] MEDS: Simvastatin 20 MG Tab PO SCH (21:06)
[2017-11-08] MEDS: methylPREDNISolone Sodium Succinate 125 MG/2 ML SDV IVPUSH SCH ×2 (02:15→06:33)
[2017-11-08] MEDS: Albuterol/Ipratropium 3.0-0.5 MG/3 ML Neb Soln NEB SCH ×2 (06:31→09:25)
--- NOTE | 2017-11-08 06:39 | PCM.DCSUM1 ---
Discharge Summary - Hospital Course Free Text/Narrative:: Crys is a 77yo male admitted through the ED last night for LLL PNA with hypoxia. He arrived via ambulance from [facility] in [place] where he resides for the past 7 years s/p CVA. He had been feeling weak with worsening cough and SOB x 2 days [employer]. He had a temp of 102 at SNF earlier the day of admission. He has had low grade temp overnight of 99. He is on 3L supplemental oxygen this morning with saturations in the low 90's. Did not sleep the best, is coughing with minimal production this morning. No c/o CP, dizziness, abd or back pain this morning. PMH significant for CVA in 2000, COPD, pulmonary nodule, HTN, HLD, BPH, depression and anxiety, contracture of the left hand and chronic pain syndrome, hx of tobacco use quit 7 years ago after CVA. Patient is DNR code status. PCP is Dr. Alan. - Discharge Data Discharge Date: 11/08/17 (11/03/17) Discharge Disposition: DC/Tfer to [facility] 03 Condition: Good - Discharge Diagnosis/Problem(s) (1) RSV (respiratory syncytial virus infection) SNOMED Code(s): 25598383 ICD Code: B97.4 - RESPIRATORY SYNCYTIAL VIRUS CAUSING DISEASES CLASSD ELSWHR Status: Acute Priority: High Current Visit: Yes (2) Pneumonia SNOMED Code(s): 929254209 ICD Code: J18.9 - PNEUMONIA, UNSPECIFIED ORGANISM Status: Resolved Priority: High Current Visit: Yes Qualifiers: Pneumonia type: due to unspecified organism Laterality: left Lung location: lower lobe of lung Qualified Code(s): J18.1 - Lobar pneumonia, unspecified organism (3) Hypoxia SNOMED Code(s): 341748100 ICD Code: R09.02 - HYPOXEMIA Status: Acute Priority: High Current Visit : Yes (4) COPD (chronic obstructive pulmonary disease) SNOMED Code(s): 71511854 ICD Code: J44.9 - CHRONIC OBSTRUCTIVE PULMONARY DISEASE, UNSPECIFIED Status : Chronic Priority: High Current Visit: Yes Qualifiers: COPD type: COPD with acute exacerbation Qualified Code(s): J44.1 - Chronic obstructive pulmonary disease with (acute) exacerbation (5) History of CVA (cerebrovascular accident) SNOMED Code(s): 550378087 ICD Code: Z86.73 - PRSNL HX OF TIA (TIA), AND CEREB INFRC W/O RESID DEFICITS Status: Chronic Priority: Medium Current Visit: No - Patient Summary/Data Operative Procedure(s) Performed: None Complications: None Consults: Consultations 11/04/17 08:13 OT Evaluation and Treatment [CONS] Routine PT Evaluation and Treatment [CONS] Routine Labs Pending at D/C: None Recommended Follow-up Testing/Procedures: Discharge instructions: Home oxygen use to keep sats above 90%. Completed course of antibiotic- no further abx needed on discharge--Resp Viral Panel was + for RSV- so this was viral illness. Continue with restorative therapy at SNF. Follow up with PCP within one week of discharge. Planned Operative Procedure(s) after DC: None Hospital Course: I/P: Acute LLL Pneumonia -Per ED review, CXR report per radiologist is without acute findings-Repeat CXR--stable, no acute findings -Clinically with hypoxia, cough and fever this is PNA---improved -Supplemental oxygen to keep saturations >90% -Levaquin IV -Solumedrol IV, increase 125 mg Q 8H---taper and to PO at DC -RT/Nebs/IS/FV -Mycoplasma, strep pneumo,Flu screen is negative. 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 Alan - Patient Instructions Diet: Heart Healthy Diet Activity: As Tolerated Driving: Do Not Drive Showering/Bathing: May Shower Notify Provider of: Fever, Increased Pain, Nausea and/or Vomiting - Discharge Plan Prescriptions/Med Rec: Albuterol/Ipratropium [DuoNeb 3.0-0.5 MG/3 ML] 3 ml NEB QIDRT #1 box Prednisone [IJD: Prednisone] 10 mg PO DAILY #30 tab Home Medications: Home Meds Acetaminophen [Tylenol] 325 mg PO Q6HR PRN 11/03/17 [History] Acetaminophen/HYDROcodone [[place] 325-5 MG] 1 tab PO Q6HR PRN 11/03/17 [History] Clopidogrel [Plavix] 75 mg PO DAILY 11/03/17 [History] Dutasteride [Avodart] 0.5 mg PO DAILY 11/03/17 [History] Hydrochlorothiazide 12.5 mg PO DAILY 11/03/17 [History] LORazepam [Ativan] 0.5 mg PO BEDTIME 11/03/17 [History] LORazepam [Ativan] 0.5 mg PO Q8HR PRN 11/03/17 [History] Losartan [Cozaar] 50 mg PO DAILY 11/03/17 [History] Metoprolol Tartrate [Lopressor] 25 mg PO Q12HR 11/03/17 [History] Multivitamin [Multivitamins] 1 each PO DAILY 11/03/17 [History] Sertraline [Zoloft] 150 mg PO DAILY 11/03/17 [History] Tamsulosin [Flomax] 0.8 mg PO DAILY 11/03/17 [History] atorvaSTATin [Lipitor] 20 mg PO BEDTIME 11/03/17 [History] Docosanol [Abreva 10%] 1 applic TOP DAILY PRN 11/04/17 [History] Albuterol/Ipratropium [DuoNeb 3.0-0.5 MG/3 ML] 3 ml [facility] QIDRT #1 box 11/08/17 [ Rx] Prednisone [IJD: Prednisone] 10 mg PO DAILY #30 tab 11/08/17 [Rx] Patient Handouts: Chronic Obstructive Pulmonary Disease, [id number], Community-Acquired Pneumonia, Adult, Respiratory Syncytial Virus, Adult Forms: ED Department Discharge Referrals: Nate Alan MD [Primary Care Provider] - - Discharge Summary/Plan Comment DC Time >30 min.: Yes (40 min) - General Info Date of Service: 11/08/17 Admission Dx/Problem (Free Text: Admission Diagnosis/Problem Admission Diagnosis/Problem Pneumonia Doing well, coughing minimal. Ambulating, anxious for DC today. Plan DC back to [place] today Functional Status: Reports: Pain Controlled, Tolerating Diet, Ambulating, Urinating, Incentive Spirometry. Denies: New Symptoms - Review of Systems General: Reports: No Symptoms. Denies: Fever, Weakness, Fatigue HEENT: Reports: No Symptoms Pulmonary: Reports: Cough (minimal). Denies: Shortness of Breath Cardiovascular: Reports: No Symptoms Gastrointestinal: Reports: No Symptoms Neurological: Reports: Pre-Existing Deficit Psychiatric: Reports: No Symptoms - Patient Data Vitals - Most Recent: Last Vital Signs Temp 97.5 F 11/08/17 04:47 Pulse 58 L 11/08/17 04:47 Resp 32 H 11/08/17 04:47 BP 118/63 11/08/17 04:47 Pulse Ox 94 L 11/08/17 04:47 Weight - Most Recent: 202 lb 1.6 oz I&O - Last 24 hours: Intake & Output 11/07/17 11/07/17 11/08/17 14:59 22:59 06:59 Intake Total 600 300 Balance 600 300 Lab Results - Last 24 hrs: Laboratory Results - last 24 hr 11/07/17 11/07/17 Range/Units 07:07 07:07 WBC 16.41 H (4.23-9.07) K/mm3 RBC 4.67 (4.63-6.08) M/mm3 Hgb 14.3 (13.7-17.5) gm/L Hct 43.0 (40.1-51.0) % MCV 92.1 (79.0-92.2) fl MCH 30.6 (25.7-32.2) pg MCHC 33.3 (32.2-35.5) g/dl RDW Std Deviation 43.7 (35.1-43.9) fL Plt Count 243 (163-337) K/mm3 MPV 10.2 (9.4-12.3) fl Neut % (Auto) 85.9 H (34.0-67.9) % Lymph % (Auto) 10.2 L (21.8-53.1) % [place] % (Auto) 3.5 L (5.3-12.2) % Eos % (Auto) 0.1 L (0.8-7.0) Baso % (Auto) 0.1 (0.1-1.2) % Neut # (Auto) 14.11 H (1.78-5.38) K/mm3 Lymph # (Auto) 1.67 (1.32-3.57) K/mm3 [place] # (Auto) 0.57 (0.30-0.82) K/mm3 Eos # (Auto) 0.01 L (0.04-0.54) K/mm3 Baso # (Auto) 0.01 (0.01-0.08) K/mm3 Manual Slide Review Abnormal smear Sodium 141 (136-145) mEq/L Potassium 3.9 (3.5-5.1) mEq/L Chloride 106 (98-107) mEq/L Carbon Dioxide 23 (21-32) mEq/L Anion Gap 15.9 H (5-15) BUN 32 H (7-18) mg/dL Creatinine 1.0 (0.7-1.3) mg/dL Est Cr Clr Drug Dosing 59.67 mL/min Estimated GFR (MDRD) > 60 (>60) mL/min BUN/Creatinine Ratio 32.0 H (14-18) Glucose 149 H (83-115) mg/dL Calcium 8.6 (8.5-10.1) mg/dL Magnesium 2.2 (1.8-2.4) mg/dl C-Reactive Protein < 0.2 (<1.0) mg/dL Med Orders - Current: Current Medications Acetaminophen (Tylenol) 650 mg PO Q4H PRN PRN Reason: Pain/Fever Al Hydroxide/Mg Hydroxide (Mag-Al Plus) 30 ml PO Q4H PRN PRN Reason: Heartburn Last Admin: 11/06/17 17:34 Dose: 30 ml Albuterol (Proventil Neb Soln) 2.5 mg NEB Q2H PRN PRN Reason: Shortness Of Breath/wheezing Last Admin: 11/05/17 12:06 Dose: 2.5 mg Albuterol/Ipratropium (Duoneb 3.0-0.5 Mg/3 Ml) 3 ml NEB QIDRT [facility] Last Admin: 11/07/17 20:16 Dose: 3 ml Bisacodyl (Dulcolax) 5 mg PO DAILY PRN PRN Reason: Constipation Clopidogrel Bisulfate (Plavix) 75 mg PO DAILY [facility] Last Admin: 11/07/17 09:28 Dose: 75 mg Enoxaparin Sodium (Lovenox) 40 mg SUBCUT DAILY [facility] Last Admin: 11/07/17 09:25 Dose: 40 mg Famotidine (Pepcid) 20 mg PO BID [facility] Last Admin: 11/07/17 21:06 Dose: 20 mg Finasteride (Proscar) 5 mg PO DAILY [facility] Last Admin: 11/07/17 09:25 Dose: 5 mg Hydralazine HCl (Apresoline) 20 mg IVPUSH Q6H PRN PRN Reason: Hypertension Hydrochlorothiazide (Hydrochlorothiazide) 12.5 mg PO DAILY [facility] Last Admin: 11/05/17 10:12 Dose: 12.5 mg Lorazepam (Ativan) 0.5 mg PO BEDTIME [facility] Last Admin: 11/07/17 21:06 Dose: 0.5 mg Lorazepam (Ativan) 0.5 mg PO Q8H PRN PRN Reason: Anxiety Losartan Potassium (Cozaar) 50 mg PO DAILY [facility] Last Admin: 11/05/17 10:12 Dose: 50 mg Magnesium Hydroxide (Milk Of Magnesia) 30 ml PO Q12H PRN PRN Reason: Constipation Methylprednisolone Sodium Succinate (Solu-Medrol) 125 mg IVPUSH Q6H [facility] Last Admin: 11/07/17 18:18 Dose: 125 mg Metoprolol Tartrate (Lopressor) 25 mg PO Q12HR [facility] Last Admin: 11/07/17 21:06 Dose: 25 mg Multivitamins (Thera) 1 each PO DAILY [facility] Last Admin: 11/07/17 09:25 Dose: 1 each Ondansetron HCl (Zofran Odt) 4 mg PO Q4H PRN PRN Reason: nausea, able to take PO Sertraline HCl (Zoloft) 150 mg PO DAILY [facility] Last Admin: 11/07/17 09:25 Dose: 150 mg Simvastatin (Zocor) 20 mg PO BEDTIME [facility] Last Admin: 11/07/17 21:06 Dose: 20 mg Sodium Chloride (Saline Flush) 10 ml FLUSH ASDIRECTED PRN PRN Reason: Keep Vein Open Last Admin: 11/03/17 21:45 Dose: 10 ml Tamsulosin HCl (Flomax) 0.8 mg PO DAILY [facility] Last Admin: 11/07/17 09:25 Dose: 0.8 mg Temazepam (Restoril) 7.5 mg PO BEDTIME PRN PRN Reason: Sleep Last Admin: 11/07/17 21:06 Dose: 7.5 mg Discontinued Medications Acetaminophen (Tylenol) 650 mg PO Q4H PRN PRN Reason: Pain (Mild 1-3)/fever Albuterol/Ipratropium (Duoneb 3.0-0.5 Mg/3 Ml) 3 ml NEB ONETIME ONE Stop: 11/03/17 21:28 Last Admin: 11/03/17 21:38 Dose: 3 ml Albuterol/Ipratropium (Duoneb 3.0-0.5 Mg/3 Ml) 3 ml NEB ONETIME ONE Stop: 11/04/17 00:10 Last Admin: 11/04/17 01:10 Dose: Not Given Albuterol/Ipratropium (Duoneb 3.0-0.5 Mg/3 Ml) 3 ml NEB Q6HRRT [facility] Last Admin: 11/06/17 15:16 Dose: 3 ml Albuterol/Ipratropium (Duoneb 3.0-0.5 Mg/3 Ml) 3 ml NEB QID [facility] Last Admin: 11/06/17 20:19 Dose: 3 ml Enoxaparin Sodium (Lovenox) 30 mg SUBCUT ONETIME ONE Stop: 11/04/17 01:31 Last Admin: 11/04/17 02:05 Dose: 30 mg Enoxaparin Sodium (Lovenox) 40 mg SUBCUT DAILY [facility] Furosemide (Lasix) 20 mg IVPUSH NOW ONE Stop: 11/05/17 11:37 Last Admin: 11/05/17 12:34 Dose: 20 mg Ceftriaxone Sodium 2 gm/ (Sodium Chloride) 100 mls @ 100 mls/hr IV ONETIME ONE Stop: 11/03/17 22:26 Last Admin: 11/03/17 21:50 Dose: 100 mls/hr Sodium Chloride (Normal Saline) 1,000 mls @ 125 mls/hr IV ASDIRECTED [facility] Last Admin: 11/03/17 21:45 Dose: 125 mls/hr Sodium Chloride (Normal Saline) 500 mls @ 1,000 mls/hr IV .BOLUS ONE Stop: 11/03/17 23:49 Last Admin: 11/04/17 03:35 Dose: 1,000 mls/hr Levofloxacin/Dextrose 750 mg/ (Premix) 150 mls @ 100 mls/hr IV Q24H [facility] Last Admin: 11/06/17 00:30 Dose: 100 mls/hr Sodium Chloride (Normal Saline) 1,000 mls @ 100 mls/hr IV ASDIRECTED [facility] Last Admin: 11/05/17 10:20 Dose: 100 mls/hr Magnesium Sulfate 2 gm/ Premix 50 mls @ 25 mls/hr IV ONETIME ONE Stop: 11/05/17 13:15 Last Admin: 11/05/17 11:42 Dose: 25 mls/hr Levofloxacin (Levaquin) 750 mg PO BEDTIME [facility] Last Admin: 11/06/17 20:20 Dose: 750 mg Methylprednisolone Sodium Succinate (Solu-Medrol) 40 mg IVPUSH Q8H [facility] Last Admin: 11/05/17 10:12 Dose: 40 mg Methylprednisolone Sodium Succinate (Solu-Medrol) 125 mg IVPUSH Q8H [facility] Last Admin: 11/06/17 13:13 Dose: 125 mg Methylprednisolone Sodium Succinate (Solu-Medrol) 125 mg IVPUSH Q6H [facility] Last Admin: 11/06/17 19:33 Dose: Not Given Potassium Chloride (Klor-Con M20) 40 meq PO BID [facility] Stop: 11/06/17 09:01 Last Admin: 11/06/17 09:56 Dose: 40 meq - Exam Quality Assessment: Reports: Supplemental Oxygen, DVT Prophylaxis General: Reports: Alert, Oriented, Cooperative, No Acute Distress HEENT: Reports: Pupils Equal, EOMI, Mucous Membr. Moist/[place] Neck: Reports: Supple Lungs: Reports: Normal Respiratory Effort, Decreased Breath Sounds Cardiovascular: Reports: Regular Rate, Regular Rhythm GI/Abdominal Exam: Normal Bowel Sounds, Soft, Non-Tender (Male) Exam: No Hernia Rectal (Males) Exam: Deferred Back Exam: Reports: Normal Inspection Extremities: No Pedal Edema, Normal Capillary Refill Neurological: Reports: Other (preexisting deficit--- contracture of lt hand, speech impediment--chronic and stable) Psy/Mental Status: Reports: Alert, Normal Affect, Normal Mood *Q Meaningful Use (DIS) - VTE *Q VTE Criteria *Q: - Stroke *Q Stroke Criteria *Q: - AMI *Q AMI Criteria *Q:
[2017-11-08] MEDS: Hydrochlorothiazide 12.5 MG Cap PO SCH (09:13)
[2017-11-08] MEDS: Finasteride 5 MG Tab PO SCH (09:13)
[2017-11-08] MEDS: Enoxaparin 40 MG/0.4 ML Syringe SUBCUT SCH (09:13)
[2017-11-08] MEDS: Famotidine 20 MG Tab PO SCH (09:13)
[2017-11-08] MEDS: Multivitamins,Therapeutic Tab PO SCH (09:13)
[2017-11-08] MEDS: Clopidogrel 75 MG Tab PO SCH (09:13)
[2017-11-08] MEDS: Tamsulosin 0.4 MG Cap.ER PO SCH (09:13)
[2017-11-08] MEDS: Sertraline 50 MG Tab PO SCH (09:15)
[2017-11-08] MEDS: Losartan 25 MG Tab PO SCH (09:24)
[2017-11-08] MEDS: Metoprolol Tartrate 25 MG Tab PO SCH (09:24)
== END 2017-11-08 11:17 | DRG 190 ==
LOC: JD.ED 21:02 → JD.MS 23:36
PROVIDERS: ADMIT Internal Medicine Cardiovascular Disease; ATTEND Internal Medicine Cardiovascular Disease
DX: J44.0 Chronic obstructive pulmonary disease with (acute) lower respiratory infection (principal); J18.9 Pneumonia, unspecified organism; R09.02 Hypoxemia; J44.1 Chronic obstructive pulmonary disease with (acute) exacerbation; Z87.891 Personal history of nicotine dependence; R91.1 Solitary pulmonary nodule; I69.398 Other sequelae of cerebral infarction; M24.542 Contracture, left hand; I10 Essential (primary) hypertension; E78.5 Hyperlipidemia, unspecified; N40.0 Benign prostatic hyperplasia without lower urinary tract symptoms; F32.9 Major depressive disorder, single episode, unspecified; F41.9 Anxiety disorder, unspecified; G89.4 Chronic pain syndrome; H91.90 Unspecified hearing loss, unspecified ear; Z66 Do not resuscitate; B97.4 Respiratory syncytial virus as the cause of diseases classified elsewhere; Z88.0 Allergy status to penicillin; Z79.02 Long term (current) use of antithrombotics/antiplatelets; Z79.899 Other long term (current) drug therapy
CPT/HCPCS: 36415; 71045; 80053; 83605; 85025; 87040 ×2; 87804 ×2; 94640; 96361; 96365; 99285; J0696; J7030; J7040; J7050; 71046; 71046-26; 80048; 81001; 83735; 86140; 86738; 87486; 87581; 87633; 87641; 87798; 87899; 94667; 94761; 97110-GO; 97110-GP; 97116-GP; 97162-GP; 97166-GO; 97530-GO; A9270-GY; J1650; J1940; J1956; J2920; J2930; J3475

== ENCOUNTER 2017-12-19 15:30 | Emergency (ER) | payer MEDICARE, MEDICAID ==
--- NOTE | 2017-12-19 17:30 | EDM.PDOC ---
ED HPI GENERAL MEDICAL PROBLEM - General Chief Complaint: Upper Extremity Injury/Pain Stated Complaint: [facility] Time Seen by Provider: 12/19/17 16:40 Source of Information: Reports: Patient History Limitations: Reports: No Limitations - History of Present Illness INITIAL COMMENTS - FREE TEXT/NARRATIVE: Patient is a 77 y/o female who presents to the E.D. with history of left sided stroke with permanent deficits. 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 Patient has history of previous fall fracturing bone to his lower leg. Cast in place. He complains of pain to the right upper arm/shoulder,elbow, and right hip. He states with attempting to reach a shaving can he lost his balance and fell. Patient states he hit the right side of his head with no LOC. Denies neck pain, headache, vision changes, n/v, cp, sob, abdominal pain, or any additional complaints. Staff that is present states he is not on any anticoagulants. Treatments SENIOR PIPING DESIGNER: Reports: Other (see below) Other Treatments SENIOR PIPING DESIGNER: hydrocodone from [facility] home Right Shoulder Pain Score (Numeric/FACES): 3 - Related Data Allergies Allergy/AdvReac Type Severity Reaction Status Date / Time penicillin G Allergy Cannot Verified 12/19/17 16:04 Remember Home Meds: Home Meds Acetaminophen [Tylenol] 325 mg PO Q6HR PRN 11/03/17 [History] Acetaminophen/HYDROcodone [[place] 325-5 MG] 1 tab PO Q6HR PRN 11/03/17 [History] Clopidogrel [Plavix] 75 mg PO DAILY 11/03/17 [History] Dutasteride [Avodart] 0.5 mg PO DAILY 11/03/17 [History] Hydrochlorothiazide 12.5 mg PO DAILY 11/03/17 [History] LORazepam [Ativan] 0.5 mg PO BEDTIME 11/03/17 [History] LORazepam [Ativan] 0.5 mg PO Q8HR PRN 11/03/17 [History] Losartan [Cozaar] 50 mg PO DAILY 11/03/17 [History] Metoprolol Tartrate [Lopressor] 25 mg PO Q12HR 11/03/17 [History] Multivitamin [Multivitamins] 1 each PO DAILY 11/03/17 [History] Sertraline [Zoloft] 150 mg PO DAILY 11/03/17 [History] Tamsulosin [Flomax] 0.8 mg PO DAILY 11/03/17 [History] atorvaSTATin [Lipitor] 20 mg PO BEDTIME 11/03/17 [History] Docosanol [Abreva 10%] 1 applic TOP DAILY PRN 11/04/17 [History] Albuterol/Ipratropium [DuoNeb 3.0-0.5 MG/3 ML] 3 ml NEB QID PRN 12/19/17 [ History] Past Medical History HEENT History: Reports: Hard of Hearing Cardiovascular History: Reports: Hypertension Respiratory History: Reports: COPD, Other (See Below) Other Respiratory History: pulmonary nodule Musculoskeletal History: Reports: Other (See Below) Other Musculoskeletal History: contracture of left hand, chronic pain syndrome Neurological History: Reports: TIA, Other (See Below) Other Neuro History: cerebral infarction Psychiatric History: Reports: Anxiety, Depression Dermatologic History: Reports: Seborrheic Dermatitis - Past Surgical History Cardiovascular Surgical History: Reports: None Respiratory Surgical History: Reports: None Social & Family History - Family History Family Medical History: Noncontributory - Tobacco Use Smoking Status *Q: Never Smoker Used Tobacco, but Quit: Yes Month/Year Tobacco Last Used: unknown Second Hand Smoke Exposure: No - Caffeine Use Caffeine Use: Reports: Coffee, Soda - Recreational Drug Use Recreational Drug Use: No Review of Systems - Review of Systems Review Of Systems: See Below Respiratory: Reports: No Symptoms Cardiovascular: Reports: No Symptoms GI/Abdominal: Reports: No Symptoms Genitourinary: Reports: No Symptoms Musculoskeletal: Reports: Shoulder Pain (Right), Arm Pain, Joint Pain (Right hip ), Other (Cast the right lower leg from previous fracture of unknown bone occurred approximately one month ago.). Denies: Neck Pain, Back Pain (Right upper), Leg Pain Skin: Reports: No Symptoms Neurological: Reports: Pre-Existing Deficit (Left-sided deficit with speech impairment from previous stroke.), Trouble Speaking (Chronically), Difficulty Walking (Normally secondary to stroke with deficits the left side and fracture to the right leg.). Denies: Syncope ED EXAM, GENERAL - Physical Exam Exam: See Below Exam Limited By: Other (Slurred speech from previous stroke with left-sided deficit.) General Appearance: Alert, WD/WN, No Apparent Distress Ears: Hearing Grossly Normal Nose: Normal Inspection Throat/Mouth: Normal Oropharynx, No Airway Compromise Head: Atraumatic, Normocephalic Neck: Normal Inspection, Supple, Non-Tender, Full Range of Motion Respiratory/Chest: No Respiratory Distress, Lungs Clear, Normal Breath Sounds Cardiovascular: Normal Peripheral Pulses, Regular Rate, Rhythm Peripheral Pulses: 4+: Radial (L), Radial (R) GI/Abdominal: Normal Bowel Sounds, Soft, Non-Tender, No Organomegaly, No Distention Back Exam: Normal Inspection. No: Paraspinal Tenderness, Vertebral Tenderness Extremities: Other (Right arm: Pain with palpation of the proximal right humerus and shoulder.. Palpation of the posterior aspect of the right elbow along the olecranon was swelling present. Decreased range of motion of the right shoulder secondary to pain. Able to flex and extend at the elbow. No pain noted to the distal wrist or hand. Pain with palpation of the right hip. Cast presents to the distal aspect of the right lower leg from previous injury. No pain noted with palpation of the remaining parts of the right leg, left upper extremity, and left lower extremity. No pain with palpation of the femur. ) Neurological: Alert, Oriented, CN II-XII Intact Psychiatric: Normal Affect, Normal Mood Skin Exam: Warm, Dry, Intact, Normal Color, No Rash Course - Vital Signs Last Recorded V/S: Last Vital Signs Temp 98.0 F 12/19/17 15:58 Pulse 66 12/19/17 15:58 Resp 18 12/19/17 15:58 BP 92/55 L 12/19/17 15:58 Pulse Ox 92 L 12/19/17 15:58 - Re-Assessments/Exams Free Text/Narrative Re-Assessment/Exam: CT head impression: No sign of acute intracranial injury or skull fracture. Chronic right basal ganglia and thalamic lacunar infarcts. Senescent changes. X-ray of the right shoulder: proximal humerus fracture with displacement. Final interpretation pending. Reviewed with Dr. Abdul. Right hip impression: no acute fracture. Previous right hip fracture with hardware present. Final interpretation pending. Reviewed with Dr. Abdul. Elbow impression: no acute bony abnormalities. Final interpretation pending. Reviewed with Dr. Abdul. 12/19/17 18:00 I did speak to Dr. Sheriff on-call orthopedic surgeon cotton classer he will review imaging. Suggest placement of sling and swath. Have him follow-up in the clinic. After reviewing film if any changes to treatment plan he will call back. Patient tolerated this quite well. We'll discharge patient home with instructions as documented. In addition patients blood pressure has been ranging from 92 systolic to 116 systolic. He is not tachycardic. With reviewing previous blood pressures at his residence. Last one documented on transfer paperwork at [facility] was 106 systolic. We'll discharge patient home with instructions as documented. Departure - Departure Time of Disposition: 18:41 Disposition: DC/Tfer to [facility] 65 Condition: Good Clinical Impression: Risk for falls Fracture, humerus closed Qualifiers: Encounter type: initial encounter Humerus Location: proximal Fracture morphology: other fracture Fracture alignment: displaced Laterality: right Qualified Code(s): S42.291A - Other displaced fracture of upper end of right humerus, initial encounter for closed fracture Contusion of hip Qualifiers: Encounter type: initial encounter Laterality: right Qualified Code(s): S70.01XA - Contusion of right hip, initial encounter Head contusion Qualifiers: Encounter type: initial encounter Contusion of head detail: scalp Qualified Code(s): S00.03XA - Contusion of scalp, initial encounter - Discharge Information Instructions: Humerus Fracture Treated With Immobilization Referrals: Nate Alan MD [Primary Care Provider] - Forms: ED Department Discharge Additional Instructions: Leave immobilize in place until evaluated by Dr. Sheriff in the week. Call and make an appt tomorrow to be seen. Utilize tylenol and aleve for pain. May apply ice to the affected area to reduce and swelling and pain throughout the course of the day. Do not apply ice directly on the skin. Blood pressure ranged from 92 systolic to 116 systolic with admission to the ED. Last blood pressure taken from [facility] was 106 over systolic. You are at increased risk of falling secondary to the stroke affecting the left side and also secondary to fracture to right lower leg with cast present. Believe the risk for fall is mostly associated with your balance issues. Blood pressure was low and this can also be a risk as well. You are on multiple medications that can cause decrease in your blood pressure. Suggest monitoring BP daily with log kept.
--- NOTE | 2017-12-20 07:10 | CT ---
Head CT Technique: Multiple axial sections through the brain were obtained. Intravenous contrast was not utilized. Comparison: Prior head CT exam of 04/08/09. Findings: Ventricles along with basal cisterns and sulci over the convexities are moderately prominent. Old appearing infarcts noted within both basal ganglia. Diminished density is noted within the periventricular white matter. Several old right sided and left sided white matter infarcts are seen. No other abnormal parenchymal densities are seen. No evidence of intracranial hemorrhage. No midline shift or mass effect is seen. Bone window settings were reviewed which show moderate mucosal thickening within right maxillary sinus and mild mucosal thickening within the left maxillary sinus. Mild mucosal thickening seen within the ethmoid sinus. No air-fluid levels are seen. Concavity of the posterior right scalp is seen most likely due to old injury which appears healed. Impression: 1. Senescent changes as described above. 2. Sinus disease which appears to be chronic which appears healed. 3. No acute intracranial abnormality is identified. Diagnostic code #2 Agree with preliminary report issued by [employer] ([facility] preliminary report dictated on 12/19/17, 6:48 PM Central Time)
--- NOTE | 2017-12-20 09:06 | CR ---
Right shoulder: Two views of the right shoulder were obtained. Comparison: Previous right shoulder study of 10/02/09. Displaced fracture is identified within the proximal humerus. This appears to be a chronic finding and stable from previous study. Inferior spurring and joint space narrowing is seen within the acromioclavicular joint. Degenerative change also seen within the glenohumeral joint. Nothing acute is appreciated. Impression: 1. Displaced proximal humeral fracture which appears stable and appears as a chronic finding. 2. Degenerative change as noted above. Nothing acute is definitely seen. Diagnostic code #2
--- NOTE | 2017-12-20 09:06 | CR ---
Right hip: Two views of the right hip were obtained. Comparison: No prior hip exam. Orthopedic hardware is seen within the right hip. No acute fracture or dislocation is seen. Bony structures are slightly osteopenic. Vascular calcification is noted. Impression: 1. Incidental findings. Nothing acute is appreciated on two-view right hip exam. Diagnostic code #2
--- NOTE | 2017-12-20 09:06 | CR ---
Right elbow: Two views of the right elbow were obtained. Soft tissue swelling is noted posteriorly. Several small soft tissue calcifications are seen. No acute fracture or other bony abnormality is seen. Impression: 1. Soft tissue swelling. 2. No acute bony abnormality is appreciated. Diagnostic code #2
== END 2017-12-19 19:25 ==
LOC: JD.ED 15:30
DX: S42.291A Other displaced fracture of upper end of right humerus, initial encounter for closed fracture (principal); S00.03XA Contusion of scalp, initial encounter; S70.01XA Contusion of right hip, initial encounter; M25.511 Pain in right shoulder; I10 Essential (primary) hypertension; J44.9 Chronic obstructive pulmonary disease, unspecified; F32.9 Major depressive disorder, single episode, unspecified; F41.9 Anxiety disorder, unspecified; Z88.0 Allergy status to penicillin; Z86.73 Personal history of transient ischemic attack (TIA), and cerebral infarction without residual deficits; Z79.899 Other long term (current) drug therapy; Z91.81 History of falling; X58.XXXA Exposure to other specified factors, initial encounter
CPT/HCPCS: 70450; 70450-26; 73030-26-RT; 73030-RT; 73080-26-RT; 73080-RT; 73502-26-RT; 73502-RT; 99284; 99285-25

== ENCOUNTER 2020-07-24 14:12 | Emergency (ER) | payer MEDICARE, MEDICAID ==
[2020-07-24] MEDS ORDERED: Sodium Chloride 0.9% 10 ML Syringe FLUSH PRN (14:47)
--- NOTE | 2020-07-24 15:57 | EDM.PDOC ---
ED HPI GENERAL MEDICAL PROBLEM - General Chief Complaint: Neurological Problem Stated Complaint: [facility] Time Seen by Provider: 07/24/20 14:33 Source of Information: Reports: EMS, Longterm Records, RN Notes Reviewed - History of Present Illness INITIAL COMMENTS - FREE TEXT/NARRATIVE: 79 yr old male has been sent from the [facility] after syncopal event. He is reported to have been eating and than found unresponsive. His BP was low, became "cool and clamy". Hx of prior CVA, Htn, Hx of very slurred speech at baseline. No recent illness. No chest or abd pain at time of exam. - Related Data Allergies Allergy/AdvReac Type Severity Reaction Status Date / Time penicillin G Allergy Severe Cannot Verified 07/24/20 14:24 Remember Home Meds: Home Meds Acetaminophen [Tylenol] 325 mg PO Q6HR PRN 11/03/17 [History] Clopidogrel [Plavix] 75 mg PO DAILY 11/03/17 [History] Dutasteride [Avodart] 0.5 mg PO DAILY 11/03/17 [History] LORazepam [Ativan] 0.5 mg PO BEDTIME 11/03/17 [History] LORazepam [Ativan] 0.5 mg PO Q8HR PRN 11/03/17 [History] Losartan [Cozaar] 50 mg PO DAILY 11/03/17 [History] Metoprolol Tartrate [Lopressor] 25 mg PO Q12HR 11/03/17 [History] Multivitamin [Multivitamins] 1 tab PO DAILY 11/03/17 [History] Sertraline [Zoloft] 200 mg PO DAILY 11/03/17 [History] Tamsulosin [Flomax] 0.8 mg PO DAILY 11/03/17 [History] Docosanol [Abreva 10%] 1 applic TOP DAILY PRN 11/04/17 [History] Divalproex Sodium [Depakote ER] 250 mg PO DAILY 07/24/20 [History] Fluticasone Propionate [Flonase Allergy Relief] 2 spray INH DAILY 07/24/20 [History] Loperamide HCl [Imodium A-D] 2 mg PO ASDIRECTED PRN 07/24/20 [History] Magnesium Hydroxide [[place]' Milk of Magnesia] 1 applic PO DAILY PRN 07/24/20 [History] Nicotine [Nicotine Patch] 7 mg TOP DAILY 07/24/20 [History] Sodium Chloride [Saline Nasal [place]] 1 spray INH TID PRN 07/24/20 [History] busPIRone [Buspar] 5 mg PO TID 07/24/20 [History] Past Medical History HEENT History: Reports: Hard of Hearing Cardiovascular History: Reports: Hypertension Respiratory History: Reports: COPD, Other (See Below) Other Respiratory History: pulmonary nodule Musculoskeletal History: Reports: Other (See Below) Other Musculoskeletal History: contracture of left hand, chronic pain syndrome Neurological History: Reports: TIA, Other (See Below) Other Neuro History: cerebral infarction Psychiatric History: Reports: Anxiety, Depression Dermatologic History: Reports: Seborrheic Dermatitis - Past Surgical History Cardiovascular Surgical History: Reports: None Respiratory Surgical History: Reports: None Social & Family History - Family History Family Medical History: No Pertinent Family History - Tobacco Use Tobacco Use Status *Q: Unknown Ever Used Tobacco - Caffeine Use Caffeine Use: Reports: Other Other Caffeine Use: unknown - Recreational Drug Use Recreational Drug Use: No Other Recreational Drug Type: unknown ED ROS GENERAL - Review of Systems Review Of Systems: See Below Constitutional: Denies: Fever HEENT: Reports: No Symptoms Respiratory: Reports: No Symptoms Cardiovascular: Denies: Chest Pain GI/Abdominal: Denies: Abdominal Pain, Diarrhea, Vomiting Musculoskeletal: Reports: No Symptoms Skin: Reports: No Symptoms Neurological: Reports: Other (chronic slurred speech). Denies: Headache - Physical Exam Exam: See Below General Appearance: Alert, No Apparent Distress Eye Exam: Bilateral Eye: PERRL Ears: Normal External Exam Nose: Normal Inspection Throat/Mouth: Normal Inspection, Other (no blood, no injury, oral mucosa is dry) Head Exam: Atraumatic. No: Facial Ecchymosis, Facial Swelling Neck: Supple Respiratory/Chest: No Respiratory Distress, Lungs Clear, Normal Breath Sounds Cardiovascular: Regular Rate, Rhythm GI/Abdominal: Soft Neuro Exam (Abbreviated): Alert, Oriented, No Motor/Sensory Deficits Extremities: Normal Inspection Skin Exam: Warm, Dry, Normal Color #1 Interpretation EKG Date: 07/24/20 Rhythm: Other (sinus bradycardia) Rate (Beats/Min): 49 [place]: Normal P-Wave: Present QRS: Normal Course - Vital Signs Last Recorded V/S: Last Vital Signs Temp 96.0 F L 07/24/20 18:15 Pulse 53 L 11/26/20 18:15 Resp 18 07/24/20 18:15 BP 140/64 07/24/20 18:15 Pulse Ox 95 07/24/20 18:15 - Orders/Labs/Meds Orders: Active Orders 24 hr Category Date Time Status Chest 1V Frontal [CR] Stat Exams 07/24/20 14:47 Taken Head wo Cont [CT] Stat Exams 07/24/20 14:48 Taken Peripheral IV Insertion Adult [OM.PC] Stat Oth 07/24/20 14:48 Ordered Labs: Laboratory Tests 07/24/20 07/24/20 Range/Units 15:00 15:00 WBC 11.28 H (4.23-9.07) K/mm3 RBC 4.66 (4.63-6.08) M/mm3 Hgb 14.6 (13.7-17.5) gm/dl Hct 44.0 (40.1-51.0) % MCV 94.4 H (79.0-92.2) fl MCH 31.3 (25.7-32.2) pg MCHC 33.2 (32.2-35.5) g/dl RDW Std Deviation 44.3 H (35.1-43.9) fL Plt Count 187 (163-337) K/mm3 MPV 10.2 (9.4-12.3) fl Neut % (Auto) 76.1 H (34.0-67.9) % Lymph % (Auto) 17.0 L (21.8-53.1) % Glynn % (Auto) 5.2 L (5.3-12.2) % Eos % (Auto) 1.4 (0.8-7.0) Baso % (Auto) 0.3 (0.1-1.2) % Neut # (Auto) 8.58 H (1.78-5.38) K/mm3 Lymph # (Auto) 1.92 (1.32-3.57) K/mm3 Glynn # (Auto) 0.59 (0.30-0.82) K/mm3 Eos # (Auto) 0.16 (0.04-0.54) K/mm3 Baso # (Auto) 0.03 (0.01-0.08) K/mm3 Manual Slide Review Normal smear Sodium 142 (136-145) mEq/L Potassium 3.7 (3.5-5.1) mEq/L Chloride 106 (98-107) mEq/L Carbon Dioxide 28 (21-32) mEq/L Anion Gap 11.7 (5-15) BUN 17 (7-18) mg/dL Creatinine 1.1 (0.7-1.3) mg/dL Est Cr Clr Drug Dosing 58.07 mL/min Estimated GFR (MDRD) > 60 (>60) mL/min BUN/Creatinine Ratio 15.5 (14-18) Glucose 121 H (83-115) mg/dL Calcium 8.6 (8.5-10.1) mg/dL Total Bilirubin 0.5 (0.2-1.0) mg/dL AST 18 (15-37) U/L ALT 29 (16-63) U/L Alkaline Phosphatase 66 (46-116) U/L Total Protein 6.3 L (6.4-8.2) g/dl Albumin 3.3 L (3.4-5.0) g/dl Globulin 3.0 gm/dL Albumin/Globulin Ratio 1.1 (1-2) Meds: Medications Discontinued Medications Generic Name Dose Route Start Last Admin Trade Name Freq PRN Reason Stop Dose Admin Sodium Chloride 1,000 mls @ 999 mls/hr 07/24/20 16:45 07/24/20 16:48 Normal Saline IV 999 mls/hr ONETIME TARIQ Administration Sodium Chloride 10 ml 07/24/20 14:47 07/24/20 15:40 Saline Flush FLUSH 10 ml ASDIRECTED PRN Administration Keep Vein Open - Re-Assessments/Exams Free Text/Narrative Re-Assessment/Exam: 07/24/20 16:47 CXR nl, WBC, labs nl, Head CT does not show any acute findings. See Radiology report for details. At time of reexam a short time ago he still does have slurred speech but to me is more understandable from arrival to ED. His BP, vitals have been good the whole time. Sinus rythm, no ectopy. Have discussed with the charge nurse at the [facility]. Will transfer back to the [facility] at this time. Departure - Departure Time of Disposition: 16:50 Disposition: DC/Tfer to [facility] Condition: Fair Clinical Impression: Syncope Qualifiers: Syncope type: unspecified Qualified Code(s): R55 - Syncope and collapse - Discharge Information Instructions: Syncope, [id number] Referrals: Nate Alan MD [Primary Care Provider] - Forms: ED Department Discharge Additional Instructions: Labs, CXR, Head CT, EKG did not show acute findings. He seems to be back to baseline status. Continue previous care. Call or see his medical provider as needed. Return to ED as needed if symptoms worening in any way. Sepsis Event Note (ED) - Evaluation Sepsis Screening Result: No Definite Risk - Focused Exam Vital Signs: Vital Signs Temp Pulse Resp BP Pulse Ox 07/24/20 18:15 96.0 F L 53 L 18 140/64 95 07/24/20 14:19 96.8 F L 60 20 133/65 96 - My Orders Last 24 Hours: My Active Orders 07/24/20 14:47 Chest 1V Frontal [CR] Stat 07/24/20 14:48 Head wo Cont [CT] Stat Peripheral IV Insertion Adult [OM.PC] Stat - Assessment/Plan Last 24 Hours: My Active Orders 07/24/20 14:47 Chest 1V Frontal [CR] Stat 07/24/20 14:48 Head wo Cont [CT] Stat Peripheral IV Insertion Adult [OM.PC] Stat
[2020-07-24] MEDS ORDERED: Sodium Chloride 0.9% 1,000 ML IV SCH (16:45)
--- NOTE | 2020-07-28 09:35 | CR ---
PROCEDURE INFORMATION: Exam: XR Chest, 1 View Exam date and time: 07/24/2020 2:46 PM Age: 79 years old Clinical indication: Other: Syncope, possible aspiration; Patient HX: Possible aspiration TECHNIQUE: Imaging protocol: XR of the chest Views: 1 view. COMPARISON: DX Chest 2V 11/05/2017 8:41 AM FINDINGS: Lungs: The lungs are hyperinflated, consistent with underlying small airways disease. Atelectatic changes noted within the lung bases without focal pneumonia. Pleural space: Unremarkable. No pleural effusion. No pneumothorax. Heart/Mediastinum: Unremarkable. No cardiomegaly. Vasculature: The vasculature demonstrates diffuse moderate atherosclerotic calcification. Bones/joints: Chronic changes of the proximal right humerus. Old left-sided rib fractures present. The thoracic spine demonstrates moderate degenerative changes at multiple levels. IMPRESSION: 1. The lungs are hyperinflated, consistent with underlying small airways disease. 2. Atelectatic changes noted within the lung bases without focal pneumonia. Thank you for allowing us to participate in the care of your patient. Dictated and Authenticated by: Chase Knight DO 07/24/2020 4:19 PM Central Time ([place] & [place]) [facility]
--- NOTE | 2020-07-28 09:36 | CT ---
PROCEDURE INFORMATION: Exam: CT Head Without Contrast Exam date and time: 07/24/2020 2:54 PM Age: 79 years old Clinical indication: Altered mental status/memory loss and speech disturbance; Confusion or disorientation; Slurred speech; Additional info: Altered mental status and slurred speech TECHNIQUE: Imaging protocol: Computed tomography of the head without contrast. Radiation optimization: All CT scans at this facility use at least one of these dose optimization techniques: automated exposure control; mA and/or kV adjustment per patient size (includes targeted exams where dose is matched to clinical indication); or iterative reconstruction. COMPARISON: CT Head wo Cont 12/19/2017 5:28 PM FINDINGS: Brain: Age-related atrophy and chronic white matter ischemic changes, with no evidence of an acute intracranial abnormality. No hemorrhage, mass effect or midline shift. Old lacunar infarctions noted within the basal ganglia bilaterally. Cerebral ventricles: The ventricular system demonstrates mild diffuse compensatory enlargement. Bones/joints: No acute fracture. Paranasal sinuses: Visualized sinuses are unremarkable. No fluid levels. Mastoid air cells: Visualized mastoid air cells are well aerated. Soft tissues: No acute changes IMPRESSION: 1. Age-related atrophy and chronic white matter ischemic changes, with no evidence of an acute intracranial abnormality. 2. No hemorrhage, mass effect or midline shift. Thank you for allowing us to participate in the care of your patient. Dictated and Authenticated by: Chase Knight DO 07/24/2020 4:44 PM Central Time ([place] & [place]) [facility]
== END 2020-07-24 18:36 ==
LOC: JD.ED 14:12
DX: R55 Syncope and collapse (principal); J44.9 Chronic obstructive pulmonary disease, unspecified; I10 Essential (primary) hypertension; F41.9 Anxiety disorder, unspecified; F32.9 Major depressive disorder, single episode, unspecified; Z86.73 Personal history of transient ischemic attack (TIA), and cerebral infarction without residual deficits; Z88.0 Allergy status to penicillin; Z79.02 Long term (current) use of antithrombotics/antiplatelets; Z79.899 Other long term (current) drug therapy
CPT/HCPCS: 36415; 70450; 71045; 80053; 85025; 93005; 99284; J7030

== ENCOUNTER 2021-06-29 11:13 | Emergency (ER) | payer MEDICARE, MEDICAID ==
[2021-06-29] MEDS ORDERED: Sodium Chloride 0.9% 10 ML Syringe FLUSH PRN (11:55)
--- NOTE | 2021-06-29 12:02 | EDM.PDOC ---
ED HPI GENERAL MEDICAL PROBLEM - General Chief Complaint: Respiratory Problem Stated Complaint: SOB\COUGH Time Seen by Provider: 06/29/21 11:44 Source of Information: Reports: Patient, RN Notes Reviewed History Limitations: Reports: No Limitations - History of Present Illness INITIAL COMMENTS - FREE TEXT/NARRATIVE: Patient is a 80-year-old male who presents to the ER for evaluation of shortness of breath and cough. States that he is worried that he may have developed pleurisy once again. Patient does reside at [facility] [place] in [facility]. He was found to have a productive cough, noted yesterday. Patient has a slightly elevated temperature at 99.1 F while being in the ER. Patient states that his chest feels like it has in the past, when he has had pleurisy. Primary care provider is Dr. Alan. [place] staff was worried that the patient might be aspirating some of his meals. Other than elevated temperatures, he has had no chills, he has had a cough that is productive of green/yellow sputum, but no nausea/vomiting/diarrhea. States that he has been vaccinated for COVID-19, and he does not think he has been around anyone has been sick, and states he was last checked for COVID-19 about 2 weeks ago and it was negative. - Related Data Allergies Allergy/AdvReac Type Severity Reaction Status Date / Time penicillin G Allergy Unknown Cannot Verified 06/29/21 11:56 Remember Home Meds: Home Meds Clopidogrel [Plavix] 75 mg PO DAILY 11/03/17 [History] Dutasteride [Avodart] 0.5 mg PO DAILY 11/03/17 [History] Multivitamin [Multivitamins] 1 tab PO DAILY 11/03/17 [History] Sertraline [Zoloft] 200 mg PO DAILY 11/03/17 [History] Tamsulosin [Flomax] 0.8 mg PO DAILY 11/03/17 [History] docosanoL [Abreva 10%] 1 applic TOP DAILY PRN 11/04/17 [History] Divalproex Sodium [Depakote ER] 250 mg PO DAILY 07/24/20 [History] Fluticasone Propionate [Flonase Allergy Relief] 2 spray INH DAILY 07/24/20 [History] Sodium Chloride [Saline Nasal [place]] 1 spray INH TID PRN 07/24/20 [History] Nasal Saline Irrigation 1 applic NASBOTH DAILY PRN 12/20/20 [History] atorvaSTATin Calcium [Lipitor] 20 mg PO DAILY 12/20/20 [History] levoFLOXacin [Levaquin] 750 mg PO DAILY #6 tab 06/29/21 [Rx] Past Medical History HEENT History: Reports: Hard of Hearing, Other (See Below) Other HEENT History: nasal congestion, 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 Cardiovascular History: Reports: CAD, Hypertension, Other (See Below) Other Cardiovascular History: chronic ischemic heart disease. Respiratory History: Reports: COPD, SOB, Other (See Below) Other Respiratory History: pulmonary nodule Gastrointestinal History: Reports: Chronic Diarrhea Genitourinary History: Reports: Other (See Below) Other Genitourinary History: benign prostatic hyperplasia Musculoskeletal History: Reports: Fracture, Other (See Below) Other Musculoskeletal History: contracture of left hand, chronic pain syndrome, muscle wasting and atrophy. Neurological History: Reports: TIA, Other (See Below) Other Neuro History: cerebral infarction, myalgia Psychiatric History: Reports: Anxiety, Depression Dermatologic History: Reports: Seborrheic Dermatitis - Past Surgical History HEENT Surgical History: Reports: None Cardiovascular Surgical History: Reports: None Respiratory Surgical History: Reports: None GI Surgical History: Reports: None Male Surgical History: Reports: None Neurological Surgical History: Reports: None Musculoskeletal Surgical History: Reports: None Dermatological Surgical History: Reports: None Social & Family History - Family History Family Medical History: No Pertinent Family History - Caffeine Use Caffeine Use: Reports: None Other Caffeine Use: unknown ED ROS GENERAL - Review of Systems Review Of Systems: Comprehensive ROS is negative, except as noted in HPI. ED EXAM, GENERAL - Physical Exam Exam: See Below Exam Limited By: No Limitations General Appearance: Alert, WD/WN, No Apparent Distress Respiratory/Chest: No Respiratory Distress, No Accessory Muscle Use, Chest Non- Tender, Decreased Breath Sounds (bilaterally), Rhonchi (bilaterally diffuse) Cardiovascular: Normal Peripheral Pulses, Regular Rate, Rhythm, No Edema Extremities: Normal Inspection, Normal Capillary Refill Neurological: Alert, Oriented, Normal Cognition, No Motor/Sensory Deficits Psychiatric: Normal Affect, Normal Mood Skin Exam: Warm, Dry, Intact, Normal Color, No Rash Course - Vital Signs Last Recorded V/S: Last Vital Signs Temp 99.1 F 06/29/21 11:49 Pulse 90 06/29/21 11:49 Resp 40 H 06/29/21 11:49 BP 109/97 H 06/29/21 11:49 Pulse Ox 85 L 06/29/21 11:49 - Orders/Labs/Meds Orders: Active Orders 24 hr Category Date Time Status Oxygen Therapy, ED [RC] ASDIRECTED Care 06/29/21 12:02 Ordered Peripheral IV Care [RC] . DIRECTED Care 06/29/21 11:56 Ordered BLOOD CULTURE [MREF] Stat Lab 06/29/21 11:56 Ordered BLOOD CULTURE [MREF] Stat Lab 06/29/21 11:56 Ordered COVID-19/FLU A+B [MOLEC] Stat Lab 06/29/21 11:55 Ordered Levofloxacin/Dextrose 5%-Water [Levaquin in D5W 750 MG/ Med 06/29/21 13:37 Ordered 150 ML] 750 mg Premix Bag 1 bag IV ONETIME Sodium Chloride 0.9% [Saline Flush] Med 06/29/21 11:55 Ordered 10 ml FLUSH ASDIRECTED PRN Blood Culture x2 Reflex Set [OM.PC] Stat Oth 06/29/21 11:56 Ordered Peripheral IV Insertion Adult [OM.PC] Routine Oth 06/29/21 11:55 Ordered Medication Orders Levofloxacin/Dextrose 750 mg/ (Premix) 150 mls @ 100 mls/hr IV ONETIME ONE Stop: 06/29/21 15:06 Last Admin: 06/29/21 14:02 Dose: 100 mls/hr Documented by: BRITNI Sodium Chloride (Sodium Chloride 0.9% 10 Ml Syringe) 10 ml FLUSH ASDIRECTED PRN PRN Reason: Keep Vein Open Last Admin: 06/29/21 12:19 Dose: 10 ml Documented by: BRITNI Labs: Laboratory Tests 06/29/21 06/29/21 06/29/21 Range/Units 12:15 12:15 12:15 WBC 9.99 H (4.23-9.07) K/mm3 RBC 4.57 L (4.63-6.08) M/mm3 Hgb 14.0 (13.7-17.5) gm/dl Hct 43.5 (40.1-51.0) % MCV 95.2 H (79.0-92.2) fl MCH 30.6 (25.7-32.2) pg MCHC 32.2 (32.2-35.5) g/dl RDW Std Deviation 44.0 H (35.1-43.9) fL Plt Count 213 (163-337) K/mm3 MPV 10.0 (9.4-12.3) fl Neut % (Auto) 76.2 H (34.0-67.9) % Lymph % (Auto) 10.9 L (21.8-53.1) % [place] % (Auto) 12.2 (5.3-12.2) % Eos % (Auto) 0.4 L (0.8-7.0) Baso % (Auto) 0.1 (0.1-1.2) % Neut # (Auto) 7.61 H (1.78-5.38) K/mm3 Lymph # (Auto) 1.09 L (1.32-3.57) K/mm3 [place] # (Auto) 1.22 H (0.30-0.82) K/mm3 Eos # (Auto) 0.04 (0.04-0.54) K/mm3 Baso # (Auto) 0.01 (0.01-0.08) K/mm3 Sodium 141 (136-145) mEq/L Potassium 3.7 (3.5-5.1) mEq/L Chloride 105 (98-107) mEq/L Carbon Dioxide 26 (21-32) mEq/L Anion Gap 13.7 (5-15) BUN 17 (7-18) mg/dL Creatinine 0.9 (0.7-1.3) mg/dL Est Cr Clr Drug Dosing 69.85 mL/min Estimated GFR (MDRD) > 60 (>60) mL/min BUN/Creatinine Ratio 18.9 H (14-18) Glucose 113 H (70-99) mg/dL Calcium 8.5 (8.5-10.1) mg/dL Magnesium 2.0 (1.8-2.4) mg/dL Total Bilirubin 1.1 H (0.2-1.0) mg/dL AST 16 (15-37) U/L ALT 11 L (16-63) U/L Alkaline Phosphatase 62 (46-116) U/L C-Reactive Protein 20.9 H* (<1.0) mg/dL Total Protein 6.8 (6.4-8.2) g/dl Albumin 3.2 L (3.4-5.0) g/dl Globulin 3.6 gm/dL Albumin/Globulin Ratio 0.9 L (1-2) Meds: Medications Generic Name Dose Route Start Last Admin Trade Name Hiq PRN Reason Stop Dose Admin Levofloxacin/Dextrose 750 mg/ 150 mls @ 100 mls/hr 06/29/21 13:37 06/29/21 14:02 Premix IV 06/29/21 15:06 100 mls/hr ONETIME ONE Administration Sodium Chloride 10 ml 06/29/21 11:55 06/29/21 12:19 Sodium Chloride 0.9% 10 Ml Syringe FLUSH 10 ml ASDIRECTED PRN Administration Keep Vein Open - Re-Assessments/Exams Free Text/Narrative Re-Assessment/Exam: 06/29/21 13:33 Patient presents to the ER for evaluation of his congested cough. Patient's white count is mildly elevated, and the chest x-ray does demonstrate mild right basilar atelectasis, and a slight increased density within the right midlung possibly due to minimal pneumonia. This is likely the cause of the patient's symptoms. We will go ahead and give the patient's 2 g IV Rocephin while being in the ER, and have him return to [place], with oxygen as needed for the next few days, and antibiotics. Departure - Departure Time of Disposition: 14:14 Disposition: Home, Self-Care 01 Condition: Good Clinical Impression: Pneumonia Qualifiers: Pneumonia type: due to unspecified organism Laterality: right Lung location: middle lobe of lung Qualified Code(s): J18.9 - Pneumonia, unspecified organism - Discharge Information *PRESCRIPTION DRUG MONITORING PROGRAM REVIEWED*: No *COPY OF PRESCRIPTION DRUG MONITORING REPORT IN PATIENT EARL: No Prescriptions: levoFLOXacin [Levaquin] 750 mg PO DAILY #6 tab Instructions: Hospital-Acquired Pneumonia Referrals: Nate Alan MD [Primary Care Provider] - Forms: ED Department Discharge Additional Instructions: You were evaluated in the ER today for your fever, and productive cough. Laboratory and radiology evaluation does demonstrate that you are suffering from a right middle lobe pneumonia. You have been given 1 dose IV antibiotics in the ER. You will need to continue to wear oxygen as needed for ongoing management, until your oxygen saturations are above 90% on room air without any respiratory difficulty. You will need to continue oral antibiotics, to be 1 tablet daily for the next 6 days. This will be Levaquin, and has been electronically prescribed to the [facility] pharmacy located by [place]. Recommend that you follow up with your regular doctor after the conclusion of a ntibiotics for re-evaluation and to make sure that your symptoms are getting better as expected. Please return to the ER at any time if symptoms change or worsen. Sepsis Event Note (ED) - Evaluation Sepsis Screening Result: No Definite Risk - Focused Exam Vital Signs: Vital Signs Temp Pulse Resp BP Pulse Ox 06/29/21 11:49 99.1 F 90 40 H 109/97 H 85 L - My Orders Last 24 Hours: My Active Orders 06/29/21 11:55 COVID-19/FLU A+B [MOLEC] Stat Sodium Chloride 0.9% [Saline Flush] 10 ml FLUSH ASDIRECTED PRN Peripheral IV Insertion Adult [OM.PC] Routine 06/29/21 11:56 Peripheral IV Care [RC] . DIRECTED BLOOD CULTURE [MREF] Stat BLOOD CULTURE [MREF] Stat Blood Culture x2 Reflex Set [OM.PC] Stat 06/29/21 12:02 Oxygen Therapy, ED [RC] ASDIRECTED 06/29/21 13:37 Levofloxacin/Dextrose 5%-Water [Levaquin in D5W 750 MG/150 ML] 750 mg Premix Bag 1 bag IV ONETIME - Assessment/Plan Last 24 Hours: My Active Orders 06/29/21 11:55 COVID-19/FLU A+B [MOLEC] Stat Sodium Chloride 0.9% [Saline Flush] 10 ml FLUSH ASDIRECTED PRN Peripheral IV Insertion Adult [OM.PC] Routine 06/29/21 11:56 Peripheral IV Care [RC] . DIRECTED BLOOD CULTURE [MREF] Stat BLOOD CULTURE [MREF] Stat Blood Culture x2 Reflex Set [OM.PC] Stat 06/29/21 12:02 Oxygen Therapy, ED [RC] ASDIRECTED 06/29/21 13:37 Levofloxacin/Dextrose 5%-Water [Levaquin in D5W 750 MG/150 ML] 750 mg Premix Bag 1 bag IV ONETIME
--- NOTE | 2021-06-29 13:15 | CR ---
Chest: Portable view of the chest was obtained. Comparison: Prior chest x-ray of 12/22/20. Slight atelectasis is seen within the right lung base. More focal density is seen within the right midlung possibly due to small area of pneumonia. Lungs otherwise are clear. Old left-sided rib fractures are seen. Old left clavicle fracture is noted. Bony structures are osteopenic. Impression: 1. Mild right basilar atelectasis. 2. Slight increased density within the right midlung possibly due to minimal pneumonia. 3. Old bony trauma and osteopenia. Diagnostic code #3
[2021-06-29] MEDS ORDERED: Levofloxacin/Dextrose 5%-Water 750 MG in Premix Bag 1 BAG IV ONE (13:37)
== END 2021-06-29 16:42 | disposition home or self-care (01) ==
LOC: JD.ED 11:13
DX: J18.9 Pneumonia, unspecified organism (principal); I25.10 Atherosclerotic heart disease of native coronary artery without angina pectoris; I10 Essential (primary) hypertension; J44.9 Chronic obstructive pulmonary disease, unspecified; Z86.73 Personal history of transient ischemic attack (TIA), and cerebral infarction without residual deficits; Z79.02 Long term (current) use of antithrombotics/antiplatelets; Z88.0 Allergy status to penicillin; Z79.899 Other long term (current) drug therapy; Z20.822 Contact with and (suspected) exposure to COVID-19
CPT/HCPCS: 36415; 71045; 80053; 83735; 85025; 86140; 87040; 87804; 96365; 99285; J1956; U0002

== ENCOUNTER 2023-01-25 23:11 | Inpatient (IN) | payer MEDICARE, MEDICAID ==
[2023-01-25] MEDS ORDERED: cefTRIAXone 2 GM in Sodium Chloride 0.9% 100 ML IV ONE (23:23)
[2023-01-25 23:38] LABS: BASOPHILS ABSOLUTE AUTO 0.01 K/mm3 (0.01-0.08); BASOPHILS PERCENT AUTO 0.1 % (0.1-1.2); EOSINOPHILS PERCENT AUTO 0 (0.8-7.0); HEMATOCRIT 38.7 % (40.1-51.0); HEMOGLOBIN 12.8 gm/dl (13.7-17.5); IMMATURE GRAN ABSOLUTE AUTO 0.02 K/mm3 (0.00-0.10); IMMATURE GRAN PERCENT AUTO 0.2 % (<=1.0); LYMPHOCYTES ABSOLUTE AUTO 0.65 K/mm3 (1.32-3.57); LYMPHOCYTES PERCENT AUTO 5.5 % (21.8-53.1); MEAN CORPUSCULAR HEMOGLOBIN 31.8 pg (25.7-32.2); MEAN CORPUSCULAR HGB CONC 33.1 g/dl (32.2-35.5); MEAN CORPUSCULAR VOLUME 96.3 fl (79.0-92.2); MEAN PLATELET VOLUME 10.3 fl (9.4-12.3); MONOCYTES ABSOLUTE AUTO 1.09 K/mm3 (0.30-0.82); MONOCYTES PERCENT AUTO 9.2 % (5.3-12.2); NEUTROPHILS ABSOLUTE AUTO 10.14 K/mm3 (1.78-5.38); PLATELET COUNT,PLT 208 K/mm3 (163-337); RED BLOOD CELL COUNT 4.02 M/mm3 (4.63-6.08); WHITE BLOOD CELL COUNT,WBC 11.91 K/mm3 (4.23-9.07)
[2023-01-26] LABS: A/G RATIO 0.9 (1-2); ALBUMIN 3.1 g/dl (3.4-5.0); ANION GAP 15.5 (5-15); BILIRUBIN TOTAL 0.8 mg/dL (0.2-1.0); BUN/CREATININE RATIO 23.3 (14-18); CALCIUM 8.6 mg/dL (8.5-10.1); CREATININE 0.9 mg/dL (0.7-1.3); EST CRCL DRUG DOSING (CG) 65.46 mL/min; POTASSIUM,K 3.5 mEq/L (3.5-5.1); PROTEIN TOTAL,TP 6.6 g/dl (6.4-8.2)
[2023-01-26] LABS: APPEARANCE,URINE CLEAR (Clear); BILIRUBIN,URINE 1+ (Negative); COLOR,URINE DARK YELLOW (Yellow); GLUCOSE,URINE NEGATIVE (Negative); KETONES,URINE 1+ (Negative); LEUKOCYTE ESTERASE,URINE NEGATIVE (Negative); NITRITE,URINE NEGATIVE (Negative); OCCULT BLOOD,URINE NEGATIVE (Negative); PROTEIN,URINE 2+ (Negative); UROBILINOGEN,URINE 0.2 (0.2-1.0)
[2023-01-26 00:02] LABS: LACTIC ACID 0.7 mmol/L (0.4-2.0)
[2023-01-26 00:10] LABS: RBC,URINE 0-5 /hpf (0-5)
[2023-01-26 00:11] LABS: AMORPHOUS SEDIMENT,URINE FEW /hpf (NOT SEEN); BACTERIA,URINE MODERATE /hpf (FEW); EPITHELIAL CELLS,URINE 0-5 /hpf (0-5); MUCUS,URINE MODERATE /hpf (FEW)
[2023-01-26] MEDS ORDERED: VANCOmycin 1.5 GM/300 ML 1.5 GM in Premix Bag 1 BAG IV ONE (00:12)
[2023-01-26] MEDS: Tamsulosin 0.4 MG Cap.ER PO SCH (08:09)
[2023-01-26] MEDS: Sodium Chloride 0.9% 1,000 ML IV SCH ×2 (08:09→23:40)
[2023-01-26] MEDS: Finasteride 5 MG Tab PO SCH (08:09)
[2023-01-26] MEDS: Losartan 100 MG Tab PO SCH (08:09)
[2023-01-26] MEDS: Clopidogrel 75 MG Tab PO SCH (08:10)
[2023-01-26] MEDS: atorvaSTATin 20 MG Tab PO SCH (08:10)
[2023-01-26 09:41] LABS: BASOPHILS ABSOLUTE AUTO 0.01 K/mm3 (0.01-0.08); BASOPHILS PERCENT AUTO 0.1 % (0.1-1.2); EOSINOPHILS ABSOLUTE AUTO 0.01 K/mm3 (0.04-0.54); EOSINOPHILS PERCENT AUTO 0.1 (0.8-7.0); HEMATOCRIT 37.2 % (40.1-51.0); HEMOGLOBIN 11.9 gm/dl (13.7-17.5); IMMATURE GRAN ABSOLUTE AUTO 0.02 K/mm3 (0.00-0.10); IMMATURE GRAN PERCENT AUTO 0.2 % (<=1.0); LYMPHOCYTES ABSOLUTE AUTO 0.95 K/mm3 (1.32-3.57); LYMPHOCYTES PERCENT AUTO 8.1 % (21.8-53.1); MEAN CORPUSCULAR HEMOGLOBIN 31.3 pg (25.7-32.2); MEAN CORPUSCULAR VOLUME 97.9 fl (79.0-92.2); MEAN PLATELET VOLUME 10.4 fl (9.4-12.3); MONOCYTES ABSOLUTE AUTO 1.27 K/mm3 (0.30-0.82); MONOCYTES PERCENT AUTO 10.9 % (5.3-12.2); NEUTROPHILS PERCENT AUTO 80.6 % (34.0-67.9); PLATELET COUNT,PLT 187 K/mm3 (163-337); WHITE BLOOD CELL COUNT,WBC 11.66 K/mm3 (4.23-9.07)
[2023-01-26 10:22] LABS: A/G RATIO 0.8 (1-2); ALBUMIN 2.7 g/dl (3.4-5.0); ANION GAP 11.4 (5-15); BILIRUBIN TOTAL 0.7 mg/dL (0.2-1.0); CALCIUM 8.4 mg/dL (8.5-10.1); CREATININE 0.9 mg/dL (0.7-1.3); EST CRCL DRUG DOSING (CG) 65.46 mL/min; POTASSIUM,K 3.4 mEq/L (3.5-5.1); PROTEIN TOTAL,TP 6.2 g/dl (6.4-8.2)
[2023-01-26] MEDS: Sertraline 50 MG Tab PO SCH (12:59)
[2023-01-26] MEDS: Divalproex Sodium Delayed-Release 250 MG Tab.CR PO SCH (12:59)
[2023-01-26] MEDS ORDERED: cefTRIAXone 2 GM in Sodium Chloride 0.9% 100 ML IV SCH (23:00)
[2023-01-27 06:08] LABS: BASOPHILS ABSOLUTE AUTO 0.01 K/mm3 (0.01-0.08); BASOPHILS PERCENT AUTO 0.1 % (0.1-1.2); EOSINOPHILS ABSOLUTE AUTO 0.09 K/mm3 (0.04-0.54); EOSINOPHILS PERCENT AUTO 0.8 (0.8-7.0); HEMOGLOBIN 10.9 gm/dl (13.7-17.5); IMMATURE GRAN ABSOLUTE AUTO 0.03 K/mm3 (0.00-0.10); IMMATURE GRAN PERCENT AUTO 0.3 % (<=1.0); LYMPHOCYTES ABSOLUTE AUTO 1.38 K/mm3 (1.32-3.57); MEAN CORPUSCULAR HEMOGLOBIN 31.5 pg (25.7-32.2); MEAN CORPUSCULAR HGB CONC 32.1 g/dl (32.2-35.5); MEAN CORPUSCULAR VOLUME 98.3 fl (79.0-92.2); MEAN PLATELET VOLUME 10.4 fl (9.4-12.3); MONOCYTES ABSOLUTE AUTO 1.12 K/mm3 (0.30-0.82); MONOCYTES PERCENT AUTO 10.5 % (5.3-12.2); NEUTROPHILS ABSOLUTE AUTO 8.02 K/mm3 (1.78-5.38); NEUTROPHILS PERCENT AUTO 75.3 % (34.0-67.9); PLATELET COUNT,PLT 173 K/mm3 (163-337); RED BLOOD CELL COUNT 3.46 M/mm3 (4.63-6.08); WHITE BLOOD CELL COUNT,WBC 10.65 K/mm3 (4.23-9.07)
[2023-01-27 06:53] LABS: A/G RATIO 0.7 (1-2); ALBUMIN 2.3 g/dl (3.4-5.0); ANION GAP 11.4 (5-15); BILIRUBIN TOTAL 0.4 mg/dL (0.2-1.0); BUN/CREATININE RATIO 23.8 (14-18); CREATININE 0.8 mg/dL (0.7-1.3); EST CRCL DRUG DOSING (CG) 73.65 mL/min; POTASSIUM,K 3.4 mEq/L (3.5-5.1); PROTEIN TOTAL,TP 5.5 g/dl (6.4-8.2)
[2023-01-27] MEDS: Sertraline 50 MG Tab PO SCH (10:08)
[2023-01-27] MEDS: Tamsulosin 0.4 MG Cap.ER PO SCH (10:08)
[2023-01-27] MEDS: Clopidogrel 75 MG Tab PO SCH (10:08)
[2023-01-27] MEDS: atorvaSTATin 20 MG Tab PO SCH (10:08)
[2023-01-27] MEDS: Divalproex Sodium Delayed-Release 250 MG Tab.CR PO SCH (10:08)
[2023-01-27] MEDS: Finasteride 5 MG Tab PO SCH (10:09)
[2023-01-27] MEDS: Losartan 100 MG Tab PO SCH (10:09)
[2023-01-27] MEDS: Sodium Chloride 0.9% 1,000 ML IV SCH (13:34)
== END 2023-01-27 14:35 | DRG 178 ==
LOC: JD.ED 23:11 → JD.MS 01-26 06:41
PROVIDERS: ADMIT Internal Medicine; ATTEND Internal Medicine
DX: J69.0 Pneumonitis due to inhalation of food and vomit (principal); I69.351 Hemiplegia and hemiparesis following cerebral infarction affecting right dominant side; J44.0 Chronic obstructive pulmonary disease with (acute) lower respiratory infection; J44.1 Chronic obstructive pulmonary disease with (acute) exacerbation; J18.9 Pneumonia, unspecified organism; R09.02 Hypoxemia; H91.90 Unspecified hearing loss, unspecified ear; F41.9 Anxiety disorder, unspecified; F32.A Depression, unspecified; Z66 Do not resuscitate; Z88.0 Allergy status to penicillin; J44.9 Chronic obstructive pulmonary disease, unspecified; Z51.5 Encounter for palliative care; I10 Essential (primary) hypertension; I25.10 Atherosclerotic heart disease of native coronary artery without angina pectoris; E78.00 Pure hypercholesterolemia, unspecified; Z79.899 Other long term (current) drug therapy; Z86.73 Personal history of transient ischemic attack (TIA), and cerebral infarction without residual deficits
CPT/HCPCS: 36415; 71045; 80053; 81001; 83605; 85025; 87040 ×2; 96365; 96367; 99285; J0696; J3370; J3490; 87641; 94761; 97161-GP; 97166-GO; 97530-GP; 99222; 99238; A9270-GY; J7030

== ENCOUNTER 2023-03-23 21:00 | Emergency (ER) | payer MEDICARE, MEDICAID ==
[2023-03-23] MEDS ORDERED: Acetaminophen 325 MG Tab PO STA (22:43)
== END 2023-03-23 23:40 ==
LOC: JD.ED 21:00
DX: S70.02XA Contusion of left hip, initial encounter (principal); I25.10 Atherosclerotic heart disease of native coronary artery without angina pectoris; E78.00 Pure hypercholesterolemia, unspecified; I10 Essential (primary) hypertension; J44.9 Chronic obstructive pulmonary disease, unspecified; Z86.73 Personal history of transient ischemic attack (TIA), and cerebral infarction without residual deficits; Z88.0 Allergy status to penicillin; Z79.02 Long term (current) use of antithrombotics/antiplatelets; Z79.899 Other long term (current) drug therapy; W19.XXXA Unspecified fall, initial encounter
CPT/HCPCS: 70450; 73502; 99285; A9270; 99282

== ENCOUNTER 2023-06-18 15:54 | Emergency (ER) | payer MEDICARE, MEDICAID ==
[2023-06-18] MEDS ORDERED: Dextrose 5%-0.9% NaCl 1,000 ML IV SCH (16:15)
[2023-06-18] MEDS ORDERED: Metoclopramide 10 MG/2 ML SDV IVPUSH ONE (16:27)
[2023-06-18] MEDS ORDERED: HYDROmorphone 0.5 MG/0.5 ML Syringe IVPUSH ONE (16:27)
[2023-06-18] MEDS ORDERED: diphenhydrAMINE 50 MG/ML SDV IVPUSH ONE (16:28)
[2023-06-18 17:02] LABS: BASOPHILS PERCENT AUTO 0.2 % (0.0-1.0); EOSINOPHILS PERCENT AUTO 0.3 % (0.0-6.0); HEMATOCRIT 37.2 % (42.0-52.0); HEMOGLOBIN 12.4 gm/dl (14.0-18.0); IMMATURE GRAN ABSOLUTE AUTO 0.06 K/mm3 (0.00-0.05); IMMATURE GRAN PERCENT AUTO 0.4 % (0.0-0.4); LYMPHOCYTES ABSOLUTE AUTO 1.3 K/mm3 (1.0-4.8); LYMPHOCYTES PERCENT AUTO 9.2 % (24.0-44.0); MEAN CORPUSCULAR HEMOGLOBIN 30.6 pg (28.0-32.0); MEAN CORPUSCULAR HGB CONC 33.3 g/dl (32.0-36.0); MEAN CORPUSCULAR VOLUME 91.9 fl (83.0-99.0); MEAN PLATELET VOLUME 9.8 fl (9.4-12.4); MONOCYTES ABSOLUTE AUTO 0.6 K/mm3 (0.0-0.8); MONOCYTES PERCENT AUTO 4.7 % (0.0-8.0); NEUTROPHILS ABSOLUTE AUTO 11.5 K/mm3 (1.8-7.7); NEUTROPHILS PERCENT AUTO 85.2 % (41.0-71.0); PLATELET COUNT,PLT 242 K/mm3 (150-400); RED BLOOD CELL COUNT 4.05 M/mm3 (4.52-5.90); WHITE BLOOD CELL COUNT,WBC 13.54 K/mm3 (3.9-11.3)
[2023-06-18 17:06] LABS: PROTHROMBIN TIME 10.7 SECONDS (9.7-12.0)
[2023-06-18 17:07] LABS: PTT,PARTIAL THROMBOPLSTIN TIME 29.7 SECONDS (21.7-31.4)
[2023-06-18 17:28] LABS: A/G RATIO 0.9 (1-2); ALANINE AMINOTRANSFERASE,ALT 16 U/L (16-63); ALBUMIN 3.3 g/dl (3.4-5.0); ALKALINE PHOSPHATASE 59 U/L (46-116); ANION GAP 13.8 (5-15); ASPARTATE AMNIOTRANSFERASE,AST 14 U/L (15-37); BILIRUBIN TOTAL 0.3 mg/dL (0.2-1.0); BLOOD UREA NITROGEN,BUN 20 mg/dL (7-18); C-REACTIVE PROTEIN <0.2 mg/dL (<1.0); CALCIUM 8.7 mg/dL (8.5-10.1); CARBON DIOXIDE,CO2 25 mEq/L (21-32); CHLORIDE,CL 103 mEq/L (98-107); EST CRCL DRUG DOSING (CG) 60.83 mL/min; ESTIMATED GFR 76 mL/min (>60); GLUCOSE RANDOM 132 mg/dL (70-99); MAGNESIUM 1.9 mg/dL (1.8-2.4); POTASSIUM,K 3.8 mEq/L (3.5-5.1); PROTEIN TOTAL,TP 6.8 g/dl (6.4-8.2); SODIUM,NA 138 mEq/L (136-145); TROPONIN I HIGH SENSITIVITY 6 pg/mL (<=76)
[2023-06-18] MEDS ORDERED: HYDROmorphone 1 MG/ML Syringe IVPUSH ONE (19:10)
[2023-06-18] MEDS ORDERED: Bupivacaine 0.5% 10 ML SDV INJECT ONE (19:10)
[2023-06-18 20:00] LABS: CORONAVIRUS COVID-19 NAA NEGATIVE (NEGATIVE); INFLUENZA A NAA NEGATIVE (NEGATIVE); RESPIRATORY SYNCYTIAL VIR NAA NEGATIVE (NEGATIVE)
== END 2023-06-18 19:50 | disposition home or self-care (01) ==
LOC: JD.ED 15:54
DX: S72.002A Fracture of unspecified part of neck of left femur, initial encounter for closed fracture (principal); S09.90XA Unspecified injury of head, initial encounter; I10 Essential (primary) hypertension; J44.9 Chronic obstructive pulmonary disease, unspecified; Z88.0 Allergy status to penicillin; W19.XXXA Unspecified fall, initial encounter; Y92.129 Unspecified place in nursing home as the place of occurrence of the external cause
CPT/HCPCS: 0241U; 36415; 64450; 70450; 71045; 72170; 73552; 80053; 83735; 83880; 84484; 85025; 85610; 85730; 86140; 86850; 86900; 86901; 93005; 96361; 96374; 96375; 96376; 99285; J1170; J1200; J2765; J3490; J7042; 93010; 99284

== ENCOUNTER 2023-09-05 11:44 | Emergency (ER) | payer MEDICARE, MEDICAID ==
[2023-09-05] MEDS ORDERED: levETIRAcetam 1,000 MG in Sodium Chloride 0.9% 100 ML IV ONE (12:32)
[2023-09-05 12:40] LABS: HEMATOCRIT 34.9 % (42.0-52.0); HEMOGLOBIN 11.2 gm/dl (14.0-18.0); MEAN CORPUSCULAR HEMOGLOBIN 30.2 pg (28.0-32.0); MEAN CORPUSCULAR HGB CONC 32.1 g/dl (32.0-36.0); MEAN CORPUSCULAR VOLUME 94.1 fl (83.0-99.0); MEAN PLATELET VOLUME 8.9 fl (9.4-12.4); PLATELET COUNT,PLT 286 K/mm3 (150-400); RED BLOOD CELL COUNT 3.71 M/mm3 (4.52-5.90); WHITE BLOOD CELL COUNT,WBC 12.81 K/mm3 (3.9-11.3)
[2023-09-05 12:59] LABS: INR 1.03
[2023-09-05 13:05] LABS: A/G RATIO 0.6 (1-2); ALBUMIN 2.6 g/dl (3.4-5.0); BILIRUBIN TOTAL 0.4 mg/dL (0.2-1.0); BUN/CREATININE RATIO 22.5 (14-18); CALCIUM 8.5 mg/dL (8.5-10.1); CREATININE 0.8 mg/dL (0.7-1.3); EST CRCL DRUG DOSING (CG) 69.69 mL/min; MAGNESIUM 1.9 mg/dL (1.8-2.4); PROTEIN TOTAL,TP 6.7 g/dl (6.4-8.2)
[2023-09-05] MEDS ORDERED: propofoL 100 ML ONE (13:09)
[2023-09-05] MEDS ORDERED: Etomidate 2 MG/ML 20 ML SDV IVPUSH ONE (13:13)
[2023-09-05] MEDS ORDERED: Succinylcholine 200 MG/10 ML MDV IV ONE (13:14)
[2023-09-05] MEDS ORDERED: propofoL 100 ML IV SCH (13:15)
[2023-09-05] MEDS ORDERED: Sodium Chloride 0.9% 1,000 ML IV ONE (13:54)
== END 2023-09-05 14:40 ==
LOC: JD.ED 11:44 → MERGE 11:44 → JD.ED 14:40
DX: I62.00 Nontraumatic subdural hemorrhage, unspecified (principal); Z88.0 Allergy status to penicillin
CPT/HCPCS: 31500; 36415; 80053; 82947; 83735; 84484; 85027; 85610; 93005; 96365; 99285; J0330; J1953; J2704; J3490; J7030

== ENCOUNTER 2023-09-05 11:51 | Emergency (ER) | payer MEDICARE, MEDICAID | END 2023-09-05 14:40 | LOC: JD.ED 11:51 | DX: I62.00 Nontraumatic subdural hemorrhage, unspecified (principal); Z88.0 Allergy status to penicillin | CPT/HCPCS: 31500; 43752; 70450; 70450-26; 70496; 70496-26; 70498; 70498-26; 71045; 71045-26; 82947; 96365; 99285-25 ==

== ENCOUNTER 2023-09-20 22:03 | Inpatient (IN) | payer MEDICARE, MEDICAID ==
[2023-09-20] MEDS ORDERED: Sodium Chloride 0.9% 10 ML Syringe FLUSH PRN (22:32)
[2023-09-20] MEDS ORDERED: Sodium Chloride 0.9% 1,000 ML IV ONE (22:34)
[2023-09-20 22:55] LABS: BASE EXCESS VENOUS 0.5 (-4.0-2.0); BICARBONATE,VENOUS 24.3 meq/L (22-26); O2 SATURATION VENOUS 52.4; PCO2 VENOUS 37.9 mmHg (41-51); PH,VENOUS 7.42 (7.30-7.40)
[2023-09-20 23:07] LABS: HEMATOCRIT 38.1 % (42.0-52.0); HEMOGLOBIN 12.1 gm/dl (14.0-18.0); MEAN CORPUSCULAR HEMOGLOBIN 30.6 pg (28.0-32.0); MEAN CORPUSCULAR HGB CONC 31.8 g/dl (32.0-36.0); MEAN CORPUSCULAR VOLUME 96.5 fl (83.0-99.0); MEAN PLATELET VOLUME 9.1 fl (9.4-12.4); PLATELET COUNT,PLT 254 K/mm3 (150-400); RED BLOOD CELL COUNT 3.95 M/mm3 (4.52-5.90); WHITE BLOOD CELL COUNT,WBC 15.08 K/mm3 (3.9-11.3)
[2023-09-20 23:07] LABS: CORONAVIRUS COVID-19 NAA NEGATIVE (NEGATIVE); INFLUENZA A NAA NEGATIVE (NEGATIVE); RESPIRATORY SYNCYTIAL VIR NAA NEGATIVE (NEGATIVE)
[2023-09-20 23:29] LABS: BAND PERCENT MAN 5 % (0-10); BASOPHILS PERCENT MAN 0 (0.2-1.2); EOSINOPHILS PERCENT MAN 1 % (0.8-7.0); LYMPHOCYTES % ATYPICAL MANUAL 0 %; LYMPHOCYTES PERCENT MAN 14 % (20-40); MONOCYTES PERCENT MAN 2 % (2-10); MYELOCYTE PERCENT MAN 1
[2023-09-20 23:31] LABS: A/G RATIO 0.6 (1-2); ALBUMIN 2.5 g/dl (3.4-5.0); ANION GAP 14.1 (5-15); BILIRUBIN TOTAL 0.5 mg/dL (0.2-1.0); BUN/CREATININE RATIO 17.5 (14-18); CALCIUM 8.5 mg/dL (8.5-10.1); CREATININE 0.8 mg/dL (0.7-1.3); EST CRCL DRUG DOSING (CG) 64.02 mL/min; LACTIC ACID 0.9 mmol/L (0.4-2.0); POTASSIUM,K 4.1 mEq/L (3.5-5.1); PROTEIN TOTAL,TP 6.7 g/dl (6.4-8.2)
[2023-09-20 23:32] LABS: ANISOCYTOSIS 1+ SLIGHT; BURR CELLS 1+ SLIGHT; OVALOCYTES 1+ SLIGHT; PLATELET COUNT ESTIMATE ADEQUATE; POIKILOCYTOSIS 1+ SLIGHT; TOXIC GRANULATION FEW
[2023-09-21] MEDS ORDERED: cefTRIAXone 1 GM in Sodium Chloride 0.9% 100 ML IV ONE (01:12)
[2023-09-21] MEDS ORDERED: Azithromycin 500 MG in Sodium Chloride 0.9% 250 ML IV ONE (01:13)
[2023-09-21] MEDS ORDERED: Sodium Chloride 0.9% 100 ML ONE (01:41)
[2023-09-21] MEDS ORDERED: guaiFENesin 600 MG Tab.ER PO ONE (08:52)
[2023-09-21] MEDS ORDERED: Albuterol/Ipratropium 3.0-0.5 MG/3 ML Neb Soln NEB PRN (08:53)
[2023-09-21] MEDS ORDERED: predniSONE 20 MG Tab PO ONE (09:34)
[2023-09-21] MEDS ORDERED: methylPREDNISolone Sodium Succinate 125 MG/2 ML SDV IVPUSH ONE (10:15)
[2023-09-21 11:57] LABS: PCO2 ARTERIAL 43.8 mmHg (35.0-45.0)
[2023-09-21 11:58] LABS: BICARBONATE,ARTERIAL 24 meq/L (22.0-26.0)
[2023-09-21] MEDS: Albuterol/Ipratropium 3.0-0.5 MG/3 ML Neb Soln NEB SCH ×4 (11:59→21:44)
[2023-09-21 13:03] LABS: BASE EXCESS ARTERIAL -0.6 (-2-2.0); BICARBONATE,ARTERIAL 23.4 meq/L (22.0-26.0); PCO2 ARTERIAL 38.1 mmHg (35.0-45.0)
[2023-09-21 14:43] LABS: HEMATOCRIT 34.3 % (42.0-52.0); HEMOGLOBIN 11.2 gm/dl (14.0-18.0); MEAN CORPUSCULAR HEMOGLOBIN 31.5 pg (28.0-32.0); MEAN CORPUSCULAR HGB CONC 32.7 g/dl (32.0-36.0); MEAN CORPUSCULAR VOLUME 96.6 fl (83.0-99.0); MEAN PLATELET VOLUME 9.3 fl (9.4-12.4); PLATELET COUNT,PLT 218 K/mm3 (150-400); RED BLOOD CELL COUNT 3.55 M/mm3 (4.52-5.90)
[2023-09-21] MEDS ORDERED: Dextrose 5%-Lactated Ringers 1,000 ML IV SCH (14:45)
[2023-09-21 14:57] LABS: ALBUMIN 2.1 g/dl (3.4-5.0); ANION GAP 16.1 (5-15); CALCIUM 8.1 mg/dL (8.5-10.1); CREATININE 0.6 mg/dL (0.7-1.3); EST CRCL DRUG DOSING (CG) 85.37 mL/min; POTASSIUM,K 4.1 mEq/L (3.5-5.1); PROTEIN TOTAL,TP 6.2 g/dl (6.4-8.2)
[2023-09-21 14:58] LABS: A/G RATIO 0.5 (1-2); BILIRUBIN TOTAL 0.5 mg/dL (0.2-1.0)
[2023-09-21 15:24] LABS: C-REACTIVE PROTEIN 16.6 mg/dL (<1.0)
[2023-09-21 15:52] LABS: BAND PERCENT MAN 3 % (0-10); BASOPHILS PERCENT MAN 0 (0.2-1.2); EOSINOPHILS PERCENT MAN 0 % (0.8-7.0); LYMPHOCYTES % ATYPICAL MANUAL 0 %; LYMPHOCYTES PERCENT MAN 6 % (20-40); MONOCYTES PERCENT MAN 2 % (2-10)
[2023-09-21 15:55] LABS: ANISOCYTOSIS 1+ SLIGHT; BURR CELLS 1+ SLIGHT; OVALOCYTES 1+ SLIGHT; PLATELET COUNT ESTIMATE ADEQUATE; TOXIC GRANULATION FEW
[2023-09-21] MEDS ORDERED: Morphine 2 MG/ML SYRINGE IVPUSH PRN (18:43)
[2023-09-21] MEDS ORDERED: Acetaminophen/HYDROcodone 325-5 MG Tab PO PRN (18:43)
[2023-09-21] MEDS ORDERED: Acetaminophen 325 MG Tab PO PRN (18:43)
[2023-09-21] MEDS ORDERED: Ondansetron 4 MG/2 ML SDV IV PRN (18:43)
[2023-09-21] MEDS: Enoxaparin 40 MG/0.4 ML Syringe SUBCUT SCH (19:04)
[2023-09-21 19:56] LABS: BASE EXCESS ARTERIAL -1.4 (-2-2.0); BICARBONATE,ARTERIAL 23.1 meq/L (22.0-26.0); O2 SATURATION ARTERIAL 90.9 % (96.0-97.0); PCO2 ARTERIAL 40.3 mmHg (35.0-45.0)
[2023-09-21] MEDS ORDERED: Melatonin 3 MG Tab PO SCH (21:00)
[2023-09-21] MEDS: metroNIDAZOLE/Normal Saline 500 MG in Premix Bag 1 BAG IV SCH (21:57)
[2023-09-21] MEDS: Pantoprazole 40 MG Tab.CR PO SCH (21:59)
[2023-09-21] MEDS: cefTRIAXone 2 GM in Sodium Chloride 0.9% 100 ML IV SCH (22:32)
[2023-09-22] MEDS: Albuterol/Ipratropium 3.0-0.5 MG/3 ML Neb Soln NEB SCH ×6 (02:16→21:33)
[2023-09-22 05:00] LABS: ANION GAP 12.1 (5-15); BUN/CREATININE RATIO 33.3 (14-18); CALCIUM 8.5 mg/dL (8.5-10.1); CREATININE 0.6 mg/dL (0.7-1.3); EST CRCL DRUG DOSING (CG) 85.43 mL/min; POTASSIUM,K 4.1 mEq/L (3.5-5.1)
[2023-09-22] MEDS: metroNIDAZOLE/Normal Saline 500 MG in Premix Bag 1 BAG IV SCH ×3 (05:02→20:43)
[2023-09-22 06:08] LABS: BASOPHILS PERCENT AUTO 0.4 % (0.0-1.0); HEMATOCRIT 33.3 % (42.0-52.0); HEMOGLOBIN 10.5 gm/dl (14.0-18.0); IMMATURE GRAN ABSOLUTE AUTO 0.03 K/mm3 (0.00-0.05); IMMATURE GRAN PERCENT AUTO 0.4 % (0.0-0.4); LYMPHOCYTES ABSOLUTE AUTO 1.3 K/mm3 (1.0-4.8); LYMPHOCYTES PERCENT AUTO 17.5 % (24.0-44.0); MEAN CORPUSCULAR HEMOGLOBIN 30.3 pg (28.0-32.0); MEAN CORPUSCULAR HGB CONC 31.5 g/dl (32.0-36.0); MEAN CORPUSCULAR VOLUME 96.2 fl (83.0-99.0); MEAN PLATELET VOLUME 9.8 fl (9.4-12.4); MONOCYTES ABSOLUTE AUTO 0.8 K/mm3 (0.0-0.8); MONOCYTES PERCENT AUTO 11.1 % (0.0-8.0); NEUTROPHILS ABSOLUTE AUTO 5.4 K/mm3 (1.8-7.7); NEUTROPHILS PERCENT AUTO 70.6 % (41.0-71.0); PLATELET COUNT,PLT 212 K/mm3 (150-400); RED BLOOD CELL COUNT 3.46 M/mm3 (4.52-5.90); WHITE BLOOD CELL COUNT,WBC 7.59 K/mm3 (3.9-11.3)
[2023-09-22] MEDS ORDERED: methylPREDNISolone Sodium Succinate 40 MG/1 ML SDV IVPUSH ONE (06:35)
[2023-09-22] MEDS ORDERED: predniSONE 20 MG Tab PO SCH (07:00)
[2023-09-22] MEDS: Clopidogrel 75 MG Tab PO SCH (08:21)
[2023-09-22] MEDS: atorvaSTATin 20 MG Tab PO SCH (08:21)
[2023-09-22] MEDS: Pantoprazole 40 MG Tab.CR PO SCH (08:22)
[2023-09-22] MEDS: Sertraline 50 MG Tab PO SCH (08:22)
[2023-09-22] MEDS: Enoxaparin 40 MG/0.4 ML Syringe SUBCUT SCH (08:22)
[2023-09-22] MEDS ORDERED: Finasteride 5 MG Tab PO SCH (09:00)
[2023-09-22] MEDS ORDERED: Divalproex Sodium 250 MG Tab.ER PO SCH ×2 (09:00)
[2023-09-22] MEDS ORDERED: Pantoprazole 40 MG Vial IVPUSH SCH (10:15)
[2023-09-22] MEDS ORDERED: Dextrose 5%-0.45% NaCl 1,000 ML IV SCH (15:00)
[2023-09-22] MEDS ORDERED: Benzocaine 20% Topical Spray UD MUCMEM ONE (18:42)
[2023-09-22] MEDS: cefTRIAXone 2 GM in Sodium Chloride 0.9% 100 ML IV SCH (22:20)
[2023-09-22] MEDS: Melatonin 3 MG Tab PO PRN (23:46)
[2023-09-22] MEDS: LORazepam 0.5 MG Tab PO PRN (23:46)
[2023-09-23] MEDS: Albuterol/Ipratropium 3.0-0.5 MG/3 ML Neb Soln NEB SCH ×6 (02:59→21:39)
[2023-09-23] MEDS: metroNIDAZOLE/Normal Saline 500 MG in Premix Bag 1 BAG IV SCH ×3 (04:27→20:49)
[2023-09-23 04:36] LABS: BASOPHILS ABSOLUTE AUTO 0.1 K/mm3 (0.0-0.2); BASOPHILS PERCENT AUTO 0.4 % (0.0-1.0); EOSINOPHILS PERCENT AUTO 0.3 % (0.0-6.0); HEMATOCRIT 30.7 % (42.0-52.0); IMMATURE GRAN ABSOLUTE AUTO 0.07 K/mm3 (0.00-0.05); IMMATURE GRAN PERCENT AUTO 0.6 % (0.0-0.4); LYMPHOCYTES ABSOLUTE AUTO 2.2 K/mm3 (1.0-4.8); LYMPHOCYTES PERCENT AUTO 19.3 % (24.0-44.0); MEAN CORPUSCULAR HEMOGLOBIN 30.5 pg (28.0-32.0); MEAN CORPUSCULAR HGB CONC 32.6 g/dl (32.0-36.0); MEAN CORPUSCULAR VOLUME 93.6 fl (83.0-99.0); MEAN PLATELET VOLUME 9.9 fl (9.4-12.4); MONOCYTES ABSOLUTE AUTO 1.2 K/mm3 (0.0-0.8); MONOCYTES PERCENT AUTO 10.6 % (0.0-8.0); NEUTROPHILS ABSOLUTE AUTO 7.9 K/mm3 (1.8-7.7); NEUTROPHILS PERCENT AUTO 68.8 % (41.0-71.0); PLATELET COUNT,PLT 227 K/mm3 (150-400); RED BLOOD CELL COUNT 3.28 M/mm3 (4.52-5.90); WHITE BLOOD CELL COUNT,WBC 11.43 K/mm3 (3.9-11.3)
[2023-09-23 05:01] LABS: ANION GAP 11.3 (5-15); BUN/CREATININE RATIO 33.3 (14-18); CREATININE 0.6 mg/dL (0.7-1.3); EST CRCL DRUG DOSING (CG) 85.43 mL/min; POTASSIUM,K 3.3 mEq/L (3.5-5.1)
[2023-09-23] MEDS ORDERED: Potassium Chloride 20 MEQ Tab.ER PO ONE (08:07)
[2023-09-23] MEDS: Famotidine 40 MG/5 ML Bottle PO SCH (08:39)
[2023-09-23] MEDS: Sertraline 50 MG Tab PO SCH (08:41)
[2023-09-23] MEDS: Enoxaparin 40 MG/0.4 ML Syringe SUBCUT SCH (08:41)
[2023-09-23] MEDS: Clopidogrel 75 MG Tab PO SCH (08:41)
[2023-09-23] MEDS: atorvaSTATin 20 MG Tab PO SCH (08:42)
[2023-09-23] MEDS: Sennosides/Docusate Sodium 50-8.6 MG Tab PO SCH ×2 (14:40→20:49)
[2023-09-23] MEDS: LORazepam 0.5 MG Tab PO PRN (22:27)
[2023-09-23] MEDS: Melatonin 3 MG Tab PO PRN (22:28)
[2023-09-23] MEDS: cefTRIAXone 2 GM in Sodium Chloride 0.9% 100 ML IV SCH (23:00)
[2023-09-24] MEDS: Albuterol/Ipratropium 3.0-0.5 MG/3 ML Neb Soln NEB SCH ×4 (02:03→13:11)
[2023-09-24] MEDS: metroNIDAZOLE/Normal Saline 500 MG in Premix Bag 1 BAG IV SCH ×3 (05:15→20:49)
[2023-09-24 05:35] LABS: BASOPHILS ABSOLUTE AUTO 0.1 K/mm3 (0.0-0.2); BASOPHILS PERCENT AUTO 0.7 % (0.0-1.0); EOSINOPHILS ABSOLUTE AUTO 0.6 K/mm3 (0.0-0.4); EOSINOPHILS PERCENT AUTO 6.5 % (0.0-6.0); HEMOGLOBIN 10.8 gm/dl (14.0-18.0); IMMATURE GRAN ABSOLUTE AUTO 0.08 K/mm3 (0.00-0.05); IMMATURE GRAN PERCENT AUTO 0.9 % (0.0-0.4); LYMPHOCYTES ABSOLUTE AUTO 1.7 K/mm3 (1.0-4.8); LYMPHOCYTES PERCENT AUTO 18.3 % (24.0-44.0); MEAN CORPUSCULAR HEMOGLOBIN 31.4 pg (28.0-32.0); MEAN CORPUSCULAR HGB CONC 32.7 g/dl (32.0-36.0); MEAN CORPUSCULAR VOLUME 95.9 fl (83.0-99.0); MEAN PLATELET VOLUME 9.8 fl (9.4-12.4); MONOCYTES ABSOLUTE AUTO 1.3 K/mm3 (0.0-0.8); MONOCYTES PERCENT AUTO 14.3 % (0.0-8.0); NEUTROPHILS ABSOLUTE AUTO 5.4 K/mm3 (1.8-7.7); NEUTROPHILS PERCENT AUTO 59.3 % (41.0-71.0); PLATELET COUNT,PLT 281 K/mm3 (150-400); RED BLOOD CELL COUNT 3.44 M/mm3 (4.52-5.90); WHITE BLOOD CELL COUNT,WBC 9.05 K/mm3 (3.9-11.3)
[2023-09-24 05:54] LABS: ANION GAP 8.9 (5-15); BUN/CREATININE RATIO 21.7 (14-18); CALCIUM 8.1 mg/dL (8.5-10.1); CREATININE 0.6 mg/dL (0.7-1.3); EST CRCL DRUG DOSING (CG) 85.74 mL/min; POTASSIUM,K 3.9 mEq/L (3.5-5.1)
[2023-09-24] MEDS: Clopidogrel 75 MG Tab PO SCH (08:30)
[2023-09-24] MEDS: Enoxaparin 40 MG/0.4 ML Syringe SUBCUT SCH (08:30)
[2023-09-24] MEDS: Sertraline 50 MG Tab PO SCH (08:30)
[2023-09-24] MEDS: Sennosides/Docusate Sodium 50-8.6 MG Tab PO SCH ×3 (08:30→20:51)
[2023-09-24] MEDS: atorvaSTATin 20 MG Tab PO SCH (08:31)
[2023-09-24] MEDS: Famotidine 40 MG/5 ML Bottle PO SCH (08:31)
[2023-09-24] MEDS: Valproate Sodium 250 MG in Sodium Chloride 0.9% 100 ML IV SCH ×2 (11:37→19:14)
[2023-09-24] MEDS: Melatonin 3 MG Tab PO PRN (20:50)
[2023-09-24] MEDS: Albuterol/Ipratropium 3.0-0.5 MG/3 ML Neb Soln NEB PRN (20:55)
[2023-09-24] MEDS ORDERED: LORazepam 2 MG/ML SDV IVPUSH PRN (22:08)
[2023-09-24] MEDS: cefTRIAXone 2 GM in Sodium Chloride 0.9% 100 ML IV SCH (23:08)
[2023-09-25] MEDS: Valproate Sodium 250 MG in Sodium Chloride 0.9% 100 ML IV SCH ×3 (03:06→18:38)
[2023-09-25] MEDS: metroNIDAZOLE/Normal Saline 500 MG in Premix Bag 1 BAG IV SCH ×3 (04:28→20:59)
[2023-09-25 05:32] LABS: BASOPHILS ABSOLUTE AUTO 0.1 K/mm3 (0.0-0.2); BASOPHILS PERCENT AUTO 0.8 % (0.0-1.0); EOSINOPHILS ABSOLUTE AUTO 0.7 K/mm3 (0.0-0.4); EOSINOPHILS PERCENT AUTO 9.1 % (0.0-6.0); HEMATOCRIT 32.5 % (42.0-52.0); HEMOGLOBIN 10.5 gm/dl (14.0-18.0); IMMATURE GRAN ABSOLUTE AUTO 0.06 K/mm3 (0.00-0.05); IMMATURE GRAN PERCENT AUTO 0.8 % (0.0-0.4); LYMPHOCYTES ABSOLUTE AUTO 1.4 K/mm3 (1.0-4.8); LYMPHOCYTES PERCENT AUTO 19.3 % (24.0-44.0); MEAN CORPUSCULAR HEMOGLOBIN 30.5 pg (28.0-32.0); MEAN CORPUSCULAR HGB CONC 32.3 g/dl (32.0-36.0); MEAN CORPUSCULAR VOLUME 94.5 fl (83.0-99.0); MEAN PLATELET VOLUME 9.5 fl (9.4-12.4); MONOCYTES ABSOLUTE AUTO 1.1 K/mm3 (0.0-0.8); MONOCYTES PERCENT AUTO 15.1 % (0.0-8.0); NEUTROPHILS ABSOLUTE AUTO 4.1 K/mm3 (1.8-7.7); NEUTROPHILS PERCENT AUTO 54.9 % (41.0-71.0); PLATELET COUNT,PLT 268 K/mm3 (150-400); RED BLOOD CELL COUNT 3.44 M/mm3 (4.52-5.90); WHITE BLOOD CELL COUNT,WBC 7.37 K/mm3 (3.9-11.3)
[2023-09-25 05:45] LABS: ANION GAP 11.1 (5-15); BUN/CREATININE RATIO 16.7 (14-18); CALCIUM 7.8 mg/dL (8.5-10.1); CREATININE 0.6 mg/dL (0.7-1.3); EST CRCL DRUG DOSING (CG) 86.42 mL/min; POTASSIUM,K 4.1 mEq/L (3.5-5.1)
[2023-09-25] MEDS: Albuterol/Ipratropium 3.0-0.5 MG/3 ML Neb Soln NEB PRN (06:33)
[2023-09-25] MEDS ORDERED: LORazepam 2 MG/ML SDV IVPUSH PRN (08:07)
[2023-09-25] MEDS ORDERED: Tamsulosin 0.4 MG Cap.ER PO ONE (08:10)
[2023-09-25] MEDS: Sertraline 50 MG Tab PO SCH (08:11)
[2023-09-25] MEDS: Sennosides/Docusate Sodium 50-8.6 MG Tab PO SCH ×3 (08:11→20:56)
[2023-09-25] MEDS: Clopidogrel 75 MG Tab PO SCH (08:11)
[2023-09-25] MEDS: Enoxaparin 40 MG/0.4 ML Syringe SUBCUT SCH (08:11)
[2023-09-25] MEDS: atorvaSTATin 20 MG Tab PO SCH (08:11)
[2023-09-25] MEDS: Famotidine 40 MG/5 ML Bottle PO SCH (08:12)
[2023-09-25] MEDS: Melatonin 3 MG Tab PO PRN (20:56)
[2023-09-25] MEDS: cefTRIAXone 2 GM in Sodium Chloride 0.9% 100 ML IV SCH (22:26)
[2023-09-26] MEDS: Valproate Sodium 250 MG in Sodium Chloride 0.9% 100 ML IV SCH (04:16)
[2023-09-26] MEDS: metroNIDAZOLE/Normal Saline 500 MG in Premix Bag 1 BAG IV SCH ×3 (05:25→20:11)
[2023-09-26] MEDS: Enoxaparin 40 MG/0.4 ML Syringe SUBCUT SCH (08:00)
[2023-09-26] MEDS: atorvaSTATin 20 MG Tab PO SCH (08:00)
[2023-09-26] MEDS: Sertraline 50 MG Tab PO SCH (08:00)
[2023-09-26] MEDS: Clopidogrel 75 MG Tab PO SCH (08:00)
[2023-09-26] MEDS: Famotidine 40 MG/5 ML Bottle PO SCH (08:01)
[2023-09-26] MEDS: Sennosides/Docusate Sodium 50-8.6 MG Tab PO SCH ×3 (08:01→20:10)
[2023-09-26] MEDS ORDERED: Nystatin Topical Powder 15 GM Bottle TOP PRN (09:00)
[2023-09-26] MEDS: Divalproex Sodium Delayed-Release 500 MG Tab.CR PO SCH ×2 (10:04→20:10)
[2023-09-26] MEDS: cefTRIAXone 2 GM in Sodium Chloride 0.9% 100 ML IV SCH (23:58)
[2023-09-27] MEDS: metroNIDAZOLE/Normal Saline 500 MG in Premix Bag 1 BAG IV SCH (05:30)
[2023-09-27] MEDS: atorvaSTATin 20 MG Tab PO SCH (08:34)
[2023-09-27] MEDS: Sertraline 50 MG Tab PO SCH (08:34)
[2023-09-27] MEDS: Clopidogrel 75 MG Tab PO SCH (08:34)
[2023-09-27] MEDS: Divalproex Sodium Delayed-Release 500 MG Tab.CR PO SCH (08:35)
[2023-09-27] MEDS: Sennosides/Docusate Sodium 50-8.6 MG Tab PO SCH (08:35)
[2023-09-27] MEDS: Famotidine 40 MG/5 ML Bottle PO SCH (08:36)
[2023-09-27] MEDS: Enoxaparin 40 MG/0.4 ML Syringe SUBCUT SCH (08:43)
== END 2023-09-27 11:27 | DRG 177 ==
LOC: JD.ED 22:03 → JD.ICU 09-21 17:10
PROVIDERS: ADMIT Student in an Organized Health Care Education/Training Program; ATTEND Student in an Organized Health Care Education/Training Program
PROC: 4A133R1 Monitoring of Arterial Saturation, Peripheral, Percutaneous Approach (ICD-10-PCS; principal; 2023-09-20)
PROC: 3E03329 Introduction of Other Anti-infective into Peripheral Vein, Percutaneous Approach (ICD-10-PCS; 2023-09-21)
DX: J69.0 Pneumonitis due to inhalation of food and vomit (principal); G92.9 Unspecified toxic encephalopathy; J96.21 Acute and chronic respiratory failure with hypoxia; J44.1 Chronic obstructive pulmonary disease with (acute) exacerbation; J44.9 Chronic obstructive pulmonary disease, unspecified; Z86.73 Personal history of transient ischemic attack (TIA), and cerebral infarction without residual deficits; J44.0 Chronic obstructive pulmonary disease with (acute) lower respiratory infection; J18.9 Pneumonia, unspecified organism; A41.9 Sepsis, unspecified organism; R13.10 Dysphagia, unspecified; I95.9 Hypotension, unspecified; Z66 Do not resuscitate; H91.90 Unspecified hearing loss, unspecified ear; I25.10 Atherosclerotic heart disease of native coronary artery without angina pectoris; E78.00 Pure hypercholesterolemia, unspecified; I10 Essential (primary) hypertension; N40.0 Benign prostatic hyperplasia without lower urinary tract symptoms; R00.1 Bradycardia, unspecified; G89.4 Chronic pain syndrome; F41.9 Anxiety disorder, unspecified; D64.9 Anemia, unspecified; F32.A Depression, unspecified; Z79.01 Long term (current) use of anticoagulants; Z87.891 Personal history of nicotine dependence; Z79.02 Long term (current) use of antithrombotics/antiplatelets; Z79.899 Other long term (current) drug therapy; Z79.51 Long term (current) use of inhaled steroids; I69.991 Dysphagia following unspecified cerebrovascular disease; Z88.0 Allergy status to penicillin; Z11.52 Encounter for screening for COVID-19
CPT/HCPCS: 0241U; 36415; 36600; 71045; 74018; 80048; 80053; 80164; 82803; 83605; 83880; 84145; 84484; 85007; 85025; 85027; 86140; 87040; 87070; 87205; 93005; 94640; 94760; 96361; 96365; 96367; 96375; 97162; 97530; 99285; 93010; 99223; 99232; 99233; 99239; A9270-GY; C9113; J0456; J0696; J1650; J1836; J2060; J2920; J2930; J3490; J7030; J7042; J7050; J7620-GY

== ENCOUNTER 2024-03-22 13:17 | Emergency (ER) | payer MEDICARE, MEDICAID ==
[2024-03-22] MEDS: Sodium Chloride 0.9% 1,000 ML IV SCH (16:19)
== END 2024-03-22 21:07 | disposition home or self-care (01) ==
LOC: JD.ED 13:17
DX: R13.10 Dysphagia, unspecified (principal); R09.02 Hypoxemia; Z51.5 Encounter for palliative care; I10 Essential (primary) hypertension; I25.10 Atherosclerotic heart disease of native coronary artery without angina pectoris; E78.00 Pure hypercholesterolemia, unspecified; J44.9 Chronic obstructive pulmonary disease, unspecified; Z79.899 Other long term (current) drug therapy; Z88.0 Allergy status to penicillin
CPT/HCPCS: 96360; 96361; 99285; J7030

== ENCOUNTER 2024-03-28 21:57 | Observation (INO) | payer MEDICARE, MEDICAID ==
[2024-03-28] MEDS: Sodium Chloride 0.9% 1,000 ML IV ONE (23:04)
[2024-03-28] MEDS: Diltiazem 25 MG/5 ML SDV IVPUSH ONE (23:04)
[2024-03-29 00:06] LABS: BASOPHILS ABSOLUTE AUTO 0.1 K/mm3 (0.0-0.2); BASOPHILS PERCENT AUTO 0.2 % (0.0-1.0); HEMATOCRIT 38.1 % (42.0-52.0); IMMATURE GRAN ABSOLUTE AUTO 0.25 K/mm3 (0.00-0.05); LYMPHOCYTES ABSOLUTE AUTO 0.8 K/mm3 (1.0-4.8); LYMPHOCYTES PERCENT AUTO 3.1 % (24.0-44.0); MEAN CORPUSCULAR HEMOGLOBIN 31.8 pg (28.0-32.0); MEAN CORPUSCULAR HGB CONC 31.5 g/dl (32.0-36.0); MEAN CORPUSCULAR VOLUME 101.1 fl (83.0-99.0); MEAN PLATELET VOLUME 8.7 fl (9.4-12.4); MONOCYTES ABSOLUTE AUTO 0.6 K/mm3 (0.0-0.8); MONOCYTES PERCENT AUTO 2.5 % (0.0-8.0); NEUTROPHILS ABSOLUTE AUTO 23.1 K/mm3 (1.8-7.7); NEUTROPHILS PERCENT AUTO 93.2 % (41.0-71.0); PLATELET COUNT,PLT 338 K/mm3 (150-400); RED BLOOD CELL COUNT 3.77 M/mm3 (4.52-5.90); WHITE BLOOD CELL COUNT,WBC 24.81 K/mm3 (3.9-11.3)
[2024-03-29 00:38] LABS: A/G RATIO 0.5 (1-2); ALBUMIN 2.2 g/dl (3.4-5.0); ANION GAP 10.8 (5-15); BILIRUBIN TOTAL 0.5 mg/dL (0.2-1.0); CREATININE 0.8 mg/dL (0.7-1.3); EST CRCL DRUG DOSING (CG) 46.46 mL/min; MAGNESIUM 1.8 mg/dL (1.8-2.4); POTASSIUM,K 3.8 mEq/L (3.5-5.1); PROTEIN TOTAL,TP 6.7 g/dl (6.4-8.2)
[2024-03-29 00:44] LABS: SLIDE REVIEW ABNORMAL SMEAR
[2024-03-29 01:12] LABS: APPEARANCE,URINE CLEAR (Clear); BILIRUBIN,URINE 1+ (Negative); COLOR,URINE YELLOW (Yellow); GLUCOSE,URINE TRACE (Negative); KETONES,URINE NEGATIVE (Negative); LEUKOCYTE ESTERASE,URINE NEGATIVE (Negative); NITRITE,URINE NEGATIVE (Negative); OCCULT BLOOD,URINE 2+ (Negative); PROTEIN,URINE 1+ (Negative); UROBILINOGEN,URINE >=8.0 (0.2-1.0)
[2024-03-29] MEDS: cefTRIAXone 2 GM in Sodium Chloride 0.9% 100 ML IV ONE (01:58)
[2024-03-29 02:03] LABS: EPITHELIAL CELLS,URINE 0-5 /hpf (0-5); WBC,URINE 0-5 /hpf (0-5)
[2024-03-29 02:04] LABS: AMORPHOUS SEDIMENT,URINE FEW /hpf (NOT SEEN); BACTERIA,URINE FEW /hpf (FEW); MUCUS,URINE RARE /hpf (FEW)
[2024-03-29 03:39] LABS: LACTIC ACID 1.3 mmol/L (0.4-2.0)
[2024-03-29] MEDS: Diltiazem 25 MG/5 ML SDV IVPUSH ONE (04:41)
[2024-03-29] MEDS: Digoxin 500 MCG/2 ML Amp IVPUSH ONE (05:31)
[2024-03-29] MEDS ORDERED: Enoxaparin 60 MG/0.6 ML Syringe SUBCUT SCH (07:00)
[2024-03-29] MEDS: Enoxaparin 60 MG/0.6 ML Syringe SUBCUT SCH (07:27)
[2024-03-29] MEDS ORDERED: Metoprolol Tartrate 5 MG in Sodium Chloride 0.9% 50 ML IV PRN (17:41)
[2024-03-29] MEDS ORDERED: Heparin Sodium 5,000 Units/ML Vial IVPUSH ONE (17:43)
[2024-03-29] MEDS ORDERED: 50% Dextrose in Water 50 ML Syringe IVPUSH PRN (17:52)
[2024-03-29] MEDS ORDERED: Metoprolol Tartrate 5 MG/5 ML SDV IV PRN (17:56)
[2024-03-29] MEDS ORDERED: Ondansetron 4 MG/2 ML SDV IV PRN (18:00)
[2024-03-29] MEDS ORDERED: [UNRECOGNIZED DRUG - OTHER] TOP PRN (18:06)
[2024-03-29] MEDS ORDERED: MENTHOL TOP PRN (18:06)
[2024-03-29] MEDS ORDERED: CAMPHOR TOP PRN (18:06)
[2024-03-29] MEDS ORDERED: Albuterol/Ipratropium 3.0-0.5 MG/3 ML Neb Soln NEB PRN (18:06)
[2024-03-29] MEDS ORDERED: Nystatin Topical Powder 15 GM Bottle TOP PRN (18:06)
[2024-03-29] MEDS ORDERED: Sodium Chloride 0.65% Nasal Spray 45 ML Bottle NASBOTH PRN (18:06)
[2024-03-29] MEDS ORDERED: Acetaminophen 650 MG Supp RECTAL PRN (18:06)
[2024-03-29] MEDS ORDERED: EUCALYPTUS OIL TOP PRN (18:06)
[2024-03-29] MEDS ORDERED: Sodium Chloride 0.9% 100 ML IV SCH (18:30)
[2024-03-29] MEDS: Heparin Sodium 5,000 Units/ML Vial IVPUSH ONE (18:48)
[2024-03-29] MEDS: Insulin Lispro 100 Unit/ML 3 ML KwikPen SUBCUT SCH (18:52)
[2024-03-29 20:15] LABS: CORONAVIRUS COVID-19 NAA NEGATIVE (NEGATIVE); INFLUENZA A NAA NEGATIVE (NEGATIVE); RESPIRATORY SYNCYTIAL VIR NAA NEGATIVE (NEGATIVE)
[2024-03-29] MEDS: Pantoprazole 40 MG Vial IVPUSH SCH (20:23)
[2024-03-29] MEDS: Iopamidol 755 Mg/ML 100 ML Bottle IVPUSH ONE (20:23)
[2024-03-29] MEDS: Piperacillin/Tazobactam 4.5 GM in Sodium Chloride 0.9% 100 ML IV SCH (20:47)
[2024-03-29] MEDS: Heparin Sodium/D5W 25,000 UNITS/500 ML BAG IV SCH (20:53)
[2024-03-29] MEDS: Scopalamine 1mg/3day Transdermal Patch TRDERM PRN (20:57)
[2024-03-30] MEDS ORDERED: Piperacillin/Tazobactam 4.5 GM in Sodium Chloride 0.9% 100 ML IV SCH
[2024-03-30] MEDS: Iopamidol 755 Mg/ML 100 ML Bottle IVPUSH ONE (01:25)
[2024-03-30] MEDS: LORazepam 2 MG/ML SDV IVPUSH PRN ×3 (02:29→22:02)
[2024-03-30 03:12] LABS: BASOPHILS PERCENT AUTO 0.1 % (0.0-1.0); HEMATOCRIT 39.8 % (42.0-52.0); HEMOGLOBIN 12.9 gm/dl (14.0-18.0); IMMATURE GRAN ABSOLUTE AUTO 0.08 K/mm3 (0.00-0.05); IMMATURE GRAN PERCENT AUTO 0.4 % (0.0-0.4); LYMPHOCYTES ABSOLUTE AUTO 1.4 K/mm3 (1.0-4.8); LYMPHOCYTES PERCENT AUTO 7.2 % (24.0-44.0); MEAN CORPUSCULAR HEMOGLOBIN 32.4 pg (28.0-32.0); MEAN CORPUSCULAR HGB CONC 32.4 g/dl (32.0-36.0); MEAN PLATELET VOLUME 9.2 fl (9.4-12.4); MONOCYTES ABSOLUTE AUTO 0.7 K/mm3 (0.0-0.8); MONOCYTES PERCENT AUTO 3.6 % (0.0-8.0); NEUTROPHILS PERCENT AUTO 88.7 % (41.0-71.0); PLATELET COUNT,PLT 300 K/mm3 (150-400); RED BLOOD CELL COUNT 3.98 M/mm3 (4.52-5.90); WHITE BLOOD CELL COUNT,WBC 19.12 K/mm3 (3.9-11.3)
[2024-03-30 04:18] LABS: A/G RATIO 0.5 (1-2); ALBUMIN 2.2 g/dl (3.4-5.0); ANION GAP 14.6 (5-15); BILIRUBIN TOTAL 0.6 mg/dL (0.2-1.0); BUN/CREATININE RATIO 21.1 (14-18); CALCIUM 8.2 mg/dL (8.5-10.1); CREATININE 0.9 mg/dL (0.7-1.3); EST CRCL DRUG DOSING (CG) 41.3 mL/min; MAGNESIUM 1.9 mg/dL (1.8-2.4); PHOSPHORUS 2.3 mg/dL (2.6-4.7); POTASSIUM,K 3.6 mEq/L (3.5-5.1); PROTEIN TOTAL,TP 6.5 g/dl (6.4-8.2)
[2024-03-30] MEDS: Piperacillin/Tazobactam 4.5 GM in Sodium Chloride 0.9% 100 ML IV SCH (04:48)
[2024-03-30] MEDS: Heparin Sodium 5,000 Units/ML Vial IV ONE (04:59)
[2024-03-30] MEDS: Morphine 2 MG/ML SYRINGE IVPUSH PRN ×2 (10:55→21:44)
[2024-03-30] MEDS ORDERED: Naloxone 0.4 MG/ML SDV IVPUSH PRN (19:06)
== END 2024-03-31 13:00 | disposition hospice, inpatient (51) ==
LOC: JD.ED 21:57 → JD.MS 03-29 17:54
PROVIDERS: ADMIT Student in an Organized Health Care Education/Training Program; ATTEND Student in an Organized Health Care Education/Training Program
DX: I48.91 Unspecified atrial fibrillation (principal); J18.9 Pneumonia, unspecified organism; J44.9 Chronic obstructive pulmonary disease, unspecified; I10 Essential (primary) hypertension; E78.00 Pure hypercholesterolemia, unspecified; I25.10 Atherosclerotic heart disease of native coronary artery without angina pectoris; Z79.899 Other long term (current) drug therapy; Z88.0 Allergy status to penicillin
CPT/HCPCS: 0241U; 36415; 71045; 71275; 80053; 80202; 81001; 82607; 82746; 82947; 83605; 83735; 83880; 84100; 84484; 85025; 85730; 87040; 87641; 87899; 93005; 94760; 94761; 96361; 96365; 96367; 96372; 96375; 96376; 99285; A9270; J0696; J1160; J1644; J1650; J2060; J2270; J2543; J3370; J3490; J7030; J7050; 93010; 96366; 96368; G0378